=== PATIENT | female | born 1980 | race Caucasian/White ===

== ENCOUNTER → 2020-07-31 09:08 | Outpatient (BNVA) | payer OTHER, SELFPAY | PROVIDERS: PCP Internal Medicine; Visit Provider Internal Medicine Gastroenterology | DX: Z76.89 Persons encountering health services in other specified circumstances (principal) ==

== ENCOUNTER 2020-08-06 09:50 | Outpatient (REF) | payer OTHER, SELFPAY ==
[2020-08-06 11:23] LABS: MANUAL DIFF FLAG NO
[2020-08-06 11:43] LABS: Basophils Absolute Auto 0.1 X10*3/uL (0.0-0.2); Basophils Percent Auto 0.7 % (0-2); Eosinophils Absolute Auto 0.2 X10*3/uL (0.0-0.4); Eosinophils Percent Auto 1.6 % (0-4); Hematocrit 42.6 % (37-47); Hemoglobin 13.8 g/dl (12.0-16.0); Imm Gran Abs Auto 0.11 X10*3/uL (0.00-0.03); Lymphocytes Absolute Auto 2.9 X10*3/uL (1.2-4.9); Lymphocytes Percent Auto 26.7 % (20-40); Mean Corpuscular HGB Conc 32.4 g/dl (31.0-35.0); Mean Corpuscular Hemoglobin 30.1 pg (27.0-33.0); Mean Corpuscular Volume 92.8 fL (80-98); Mean Platelet Volume 10.5 fL (9.4-12.3); Monocytes Absolute Auto 0.7 X10*3/uL (0.1-1.2); Monocytes Percent Auto 6.3 % (2-11); Neutrophils Percent Auto 63.7 % (45-73); Platelet Count 272 X10*3/uL (160-400); Red Blood Count 4.59 X10*6/uL (4.20-5.50); Red Cell Distribution Width 13.3 % (11.0-16.0)
[2020-08-06 12:18] LABS: Alanine Aminotransferase 10 U/L (0-31); Albumin Level 4.3 g/dL (3.5-5.0); Alkaline Phosphatase 102 U/L (39-117); Aspartate Amino Transferase 14 U/L (5-31); Bilirubin Direct < 0.2 mg/dL (0.0-0.5); Bilirubin Total 0.3 mg/dL (0.0-1.0); Gamma Glutamyl Transpeptidase 24 U/L (7-33); Total Protein 7.7 g/dL (6.5-8.0)
[2020-08-07 13:37] LABS: Anti Nuclear Antibody Screen NEGATIVE (NEGATIVE)
[2020-08-09 11:52] LABS: Myeloperoxidase Antibody <1.0 AI; Proteinase 3 PR3 Antibodies <1.0 AI
[2020-08-11 14:53] LABS: Mitochondrial Antibodies NEGATIVE (NEGATIVE)
[2020-08-14 12:33] LABS: Smooth Muscle Antibody <20 U (<20)
== END 2020-08-06 09:51 | disposition home or self-care (01) ==
LOC: HO.LAB 09:50
PROVIDERS: PCP Internal Medicine; Visit Provider Internal Medicine Gastroenterology
DX: R74.8 Abnormal levels of other serum enzymes (principal)
CPT/HCPCS: 36415; 80076; 82977; 85025; 86021; 86038; 86039; 86255; 86256; 90471; 90746

== ENCOUNTER → 2020-09-10 09:22 | Outpatient (BNVA) | payer OTHER, SELFPAY | PROVIDERS: PCP Internal Medicine; Visit Provider Obstetrics & Gynecology ==

== ENCOUNTER 2020-09-10 13:15 | Outpatient (REF) | payer OTHER, SELFPAY ==
[2020-09-11 11:22] LABS: BV Int Neg Control Negative (Negative); BV Int Pos Control Positive (Positive)
[2020-09-11 11:58] LABS: C. trachomatis RNA TMA NOT DETECTED (NOT DETECTED); N. gonorrhoeae RNA TMA NOT DETECTED (NOT DETECTED)
[2020-09-18 06:07] LABS: HPV 16 RNA NOT DETECTED (NOT DETECTED); HPV mRNA E6/E7 rflx Detected (Not Detected)
== END 2020-09-10 13:16 | disposition home or self-care (01) ==
LOC: HO.LNP 13:15
PROVIDERS: Visit Provider Obstetrics & Gynecology
DX: Z12.4 Encounter for screening for malignant neoplasm of cervix (principal); N76.0 Acute vaginitis; B96.89 Other specified bacterial agents as the cause of diseases classified elsewhere; R31.29 Other microscopic hematuria
CPT/HCPCS: 87086; 87088; 87186; 87480; 87491; 87510; 87591; 87624; 87625; 87660; 88141; 88142

== ENCOUNTER 2020-10-07 07:44 | Day surgery (SDC) | payer OTHER, SELFPAY ==
[2020-10-01 09:46] VITALS: BMI 32.0
--- NOTE | 2020-10-06 11:48 | P.CONAN_ITS ---
Documented by User: Sandra Rhona 10/06/20 11:50 HPI - Anesthesia Eval Consult details Narrative: 40yo F for Upper Endoscopy and Colonoscopy methadone daily - h/o substance abuse PMFSH Active Problems Active Problems: All Active Problems (Updated 10/01/20 @ 09:45 by Ana Alonso) Bipolar disorder (Acute) Hepatitis C infection (Acute) Family history of colon cancer (Acute) Elevated alkaline phosphatase level (Acute) Well woman exam (Acute) Bacterial vaginosis (Acute) Microscopic hematuria (Acute) Past Medical History Medical History ADHD (attention deficit hyperactivity disorder) Anxiety and depression History of abnormal cervical Pap smear History of myocardial infarction History of substance abuse LGSIL (low grade squamous intraepithelial dysplasia) Termination of Family History Family History Father Arthritis HTN (hypertension) Dyslipidemia Mother Fibromyalgia Breast cancer Arthritis HTN (hypertension) Dyslipidemia Sister Breast cancer, Onset Age: 21 Cervical cancer, Onset Age: 21 Sister Colon cancer Maternal Uncle Stomach cancer Paternal Uncle Cancer Surgical History Surgical History History of section Social History Social History (Updated 10/01/20 @ 09:42 by Ana Alonso) Alcohol intake: never Smoking Status: Current every day smoker Tobacco Type: Cigarette Cigarettes Per Day: 10 Years Smoked: 15 Smoked in Last 30 Days: Yes Patient Given Instructions on How to Stop Smoking: Yes Date Education Initiated: 10/01/20 Use of substances other than those prescribed or required for medical reasons: Yes Substance Use Type: Marijuana Advance Directives: No Advance Directives Information Provided: No Advance Directives on File: No Meds Allergies Allergy/AdvReac Type Severity Reaction Status Date / Time bees Allergy Severe anphylaxis, Verified 10/07/20 09:07 anaphylaxis aspirin [ASPIRIN] Allergy Unknown UNKNOWN, Verified 10/07/20 09:07 advised not to take Home Medications Medication Instructions Recorded Confirmed Last Taken Type clonidine HCl 0.1 mg tablet 0.1 mg PO DAILY 05/06/20 10/01/20 10/07/20 06:30 History aripiprazole 20 mg tablet 20 mg PO DAILY 07/31/20 10/01/20 10/07/20 06:30 History methadone 10 mg/mL oral concentrate 98 mg PO DAILY 07/31/20 10/01/20 10/07/20 06:30 History etonogestrel 68 mg subdermal See Rx Instructions .ROUTE .COMPLEX 09/10/20 10/01/20 Unknown History implant Exam Exam Date and Time: October 06, 2020 1148 Height,Weight and Vital Signs: Height 5 ft 2 in Weight 79.379 kg Assessment and Plan Assessment Anesthesia Assessment: Chart Reviewed Documented by User: Ofelia Villareal 10/07/20 09:48 [facility] Past Medical History Medical History ADHD (attention deficit hyperactivity disorder) Anxiety and depression History of abnormal cervical Pap smear History of myocardial infarction History of substance abuse LGSIL (low grade squamous intraepithelial dysplasia) Termination of Family History Family History Father Arthritis HTN (hypertension) Dyslipidemia Mother Fibromyalgia Breast cancer Arthritis HTN (hypertension) Dyslipidemia Sister Breast cancer, Onset Age: 21 Cervical cancer, Onset Age: 21 Sister Colon cancer Maternal Uncle Stomach cancer Paternal Uncle Cancer Surgical History Surgical History History of section Social History Social History (Updated 10/01/20 @ 09:42 by Ana Alonso) Alcohol intake: never Smoking Status: Current every day smoker Tobacco Type: Cigarette Cigarettes Per Day: 10 Years Smoked: 15 Smoked in Last 30 Days: Yes Patient Given Instructions on How to Stop Smoking: Yes Date Education Initiated: 10/01/20 Use of substances other than those prescribed or required for medical reasons: Yes Substance Use Type: Marijuana Advance Directives: No Advance Directives Information Provided: No Advance Directives on File: No Meds Allergies Allergy/AdvReac Type Severity Reaction Status Date / Time bees Allergy Severe anphylaxis, Verified 10/07/20 09:07 anaphylaxis aspirin [ASPIRIN] Allergy Unknown UNKNOWN, Verified 10/07/20 09:07 advised not to take Home Medications Medication Instructions Recorded Confirmed Last Taken Type clonidine HCl 0.1 mg tablet 0.1 mg PO DAILY 05/06/20 10/01/20 10/07/20 06:30 History aripiprazole 20 mg tablet 20 mg PO DAILY 07/31/20 10/01/20 10/07/20 06:30 History methadone 10 mg/mL oral concentrate 98 mg PO DAILY 07/31/20 10/01/20 10/07/20 06:30 History etonogestrel 68 mg subdermal See Rx Instructions .ROUTE .COMPLEX 09/10/20 10/01/20 Unknown History implant Exam Airway Mallampati Class: I TM Dist: >3cm Neck ROM: Full Denture: Upper Heart: RRR Lungs: CTA BL Assessment and Plan Assessment Anesthesia Assessment: Anesthesia Plan Discussed and Chart Reviewed Final Anesthetic Review NPO: Yes (Sip water with meds) ASA Class: II Final Preanesthetic Review: No Changes in Pt Med Stat and Consent Obtained/Reviewed Patient Risk: Intermediate Procedure Risk: Intermediate Anesthetic Plan Anesthetic Plan: MAC: Disposition: Standard PACU
[2020-10-07 09:01] VITALS: BP 107/57; PULSE 67; RESP 18; TEMP 36.6; O2SAT 97
[2020-10-07 09:04] LABS: UPreg QC Valid YES; Urine Pregnancy NEGATIVE (NEGATIVE)
[2020-10-07] MEDS: Lactated Ringers 1,000 ML 100 ML IVCONT (09:47)
--- NOTE | 2020-10-07 09:49 | P.OP_ITS ---
Operative Note Operative Note Date of Service: 10/07/20 Narrative: Pre-op diagnosis: Colon cancer screening, postprandial diarrhea and bloating Post-op diagnosis: other (Colon polyp, diverticulosis, hemorrhoids) Procedure: COLONOSCOPY TILL CECUM WITH BIOPSIES AND SNARE POLYPECTOMY Consent: Indications for the procedure and potential complications of bleeding, perforation, reaction to medications and missed diagnosis were discussed with the patient and informed consent was obtained. Instrument: Olympus PCF H 190 L variable stiffness pediatric colonoscope Monitoring: Vital signs and clinical assessment, intermittent blood pressure monitoring, continuous EKG monitoring, Pulse oximetry and Carbon Dioxide monitoring were done throughout the procedure. Colon withdrawl time was 28 minutes. Procedure: The patient was placed in the left lateral decubitis position and pre-procedure medications were administered. After a digital rectal examination of the ano-rectum, the video colonoscope was inserted into the rectum and advanced through the colon to the cecum. The colonoscope was slowly withdrawn in a retrograde panoramic fashion and the colon mucosa was carefully examined including a retroflexed view of the rectum. Findings and interventions are described below. Procedure Difficulty: Without difficulty Findings: Terminal Ileum: Not evaluated Cecum: Normal Ascending Colon: Normal Transverse Colon: Normal Descending Colon: Moderate diverticulosis Sigmoid Colon: A 10 mm sessile polyp removed with a cold snare and moderate diverticulosis Rectum: Normal Ano-rectum: Small internal hemorrhoids Colon preparation: Good after some irrigation Impression and Post Procedure Diagnosis: Colonoscopy Findings: One 10 mm polyp removed Moderate diverticulosis seen in the left colon Small hemorrhoids on retroflexed exam. Plan: Await pathology results Patient has an appointment on 10/21/20 in the GI Clinic with Kristi Reece FNP- [facility]. Repeat Colonoscopy interval based on path results - in 3 years if polyps are adenomatous and 10 years if polyps are hyperplastic. Above findings were reviewed with the patient and colon polyps and diverticulosis handouts were given in the discharge area Surgeon: Teja Cantor MD Anesthesia: MAC (Dr Moran) Estimated blood loss (mL): 0 Pathology: other (A. Random colon bx, B. SC polyp x 1) Condition: stable Disposition: PACU
--- NOTE | 2020-10-07 09:49 | P.BOP_ITS ---
Brief Operative Note Date of Service: 10/07/20 Pre-op diagnosis: Family history of gastric cancer Post-op diagnosis: other (Hiatal hernia, gastritis) Procedure: FLEXIBLE TRANSORAL UPPER GASTROINTESTINAL ENDOSCOPY WITH BIOPSIES Consent: Indications for the procedure and potential complications of bleeding, perforation, reaction to medications and missed diagnosis were discussed with the patient and informed consent was obtained. Instrument: Olympus GIF H 190 mid size upper endoscope Monitoring: Vital signs and clinical assessment, continuous EKG monitoring, Pulse oximetry, Carbon Dioxide monitoring and blood pressure monitoring were done throughout the procedure. Procedure: The patient was placed in the left lateral decubitis position and pre-procedure medications were administered and a bite block was placed. The endoscope was inserted into the mouth and advanced under direct vision to the third part of duodenum. A careful inspection was made as the upper endoscope was withdrawn including a retroflexed examination of the proximal stomach; Findings and interventions are described below. Findings: Larynx: Normal Esophagus: GE junction at 33 cms, small hiatal hernia 33 to 35 cms. No esophagitis or Avelar. Stomach: Mild gastric erythema. Biopsies were obtained. Grade 2 flap valve on retroflexed examination of the cardia. Duodenum: Normal bulb and descending duodenum Intervention: Biopsies as noted above Impression and Post Procedure Diagnosis: Endoscopy Findings: ESOPHAGUS: Small hiatal hernia STOMACH: Gastritis Plan: Await pathology results Patient has an appointment on 10/16/20 in the GI Clinic with Teja Cantor M.D.- . Above findings were reviewed with the patient and Hiatal Hernia and Gastritis handouts were given in the discharge area Surgeon: Teja Cantor MD Anesthesia: MAC (Dr Moran) Estimated blood loss (mL): 0 Pathology: other (A. Gastric antrum) Condition: stable Disposition: PACU
--- NOTE | 2020-10-07 09:49 | P.HPSUR_ITS ---
Pre-Procedural Eval Section A The patient is an INPATIENT: No The History & Physical has been completed within 30 days and I have reviewed it.: No Section B Chief Complaint: hep c,family hx of colon ca Details of Present Illness: abdominal pain, family history of colon and stomach cancer Sister of colon cancer at age 52. Maternal uncles had stomach (? age 67 yrs) and colon cancer (53 yrs) Mom had colon polyps and breast. Relevant Family History (Specify if Yes): Yes Present Medications: see Short Stay Collaborative assessment Medical History: Significant History (History of abnormal cervical Pap smear History of myocardial infarction History of substance abuse) History of Previous Operations: Relevant previous surgery/procedure and date(s) (Status post ) Allergies: Allergies Allergy/AdvReac Type Severity Reaction Status Date / Time bees Allergy Severe anphylaxis, Verified 10/07/20 09:07 anaphylaxis aspirin [ASPIRIN] Allergy Unknown UNKNOWN, Verified 10/07/20 09:07 advised not to take Review of Systems Sugical H&P ROS: Negative: Constitution, Cardiovascular, Respiratory and Gastrointestinal Exam Surgical H&P Exam: Normal: Heart, Normal: Lungs, Normal: Extremities and Normal: Abdomen Plan Diagnosis/Plan: Change (Plan to proceed with EGD today. Colonoscopy will be re- scheduled since pt was not able to get her prep.) I have reviewed the history and physical and performed a pertinent physical examination on my patient. No changes have occurred unless specified.
[2020-10-07 10:24] VITALS: BP 104/58; PULSE 70; RESP 16; TEMP 37; O2SAT 94
[2020-10-07 10:39] VITALS: BP 102/61; PULSE 64; RESP 17; TEMP 37; O2SAT 99
== END 2020-10-07 11:15 | disposition home or self-care (01) ==
PROVIDERS: Nurse Practitioner; PCP Internal Medicine; Visit Provider Internal Medicine Gastroenterology
PROC: (CPT 45385; principal; 2020-10-07 09:50)
DX: Z12.11 Encounter for screening for malignant neoplasm of colon (principal); Z80.0 Family history of malignant neoplasm of digestive organs; K63.5 Polyp of colon; K57.30 Diverticulosis of large intestine without perforation or abscess without bleeding; K64.8 Other hemorrhoids; K21.9 Gastro-esophageal reflux disease without esophagitis; K29.50 Unspecified chronic gastritis without bleeding; K44.9 Diaphragmatic hernia without obstruction or gangrene; B18.2 Chronic viral hepatitis C; F90.9 Attention-deficit hyperactivity disorder, unspecified type; F31.9 Bipolar disorder, unspecified; F11.20 Opioid dependence, uncomplicated; F12.90 Cannabis use, unspecified, uncomplicated; F17.210 Nicotine dependence, cigarettes, uncomplicated; Z79.899 Other long term (current) drug therapy; Z88.8 Allergy status to other drugs, medicaments and biological substances
CPT/HCPCS: 45385; 45380; 43239; 81025; 88305; 88342

== ENCOUNTER 2020-11-26 15:28 | Outpatient (REF) | payer OTHER, SELFPAY ==
[2020-11-27 09:52] LABS: BV Int Neg Control Negative (Negative); BV Int Pos Control Positive (Positive)
== END 2020-11-26 15:29 | disposition home or self-care (01) ==
LOC: HO.LAB 15:28
PROVIDERS: Visit Provider Nurse Practitioner Family
DX: N39.0 Urinary tract infection, site not specified (principal); N89.8 Other specified noninflammatory disorders of vagina
CPT/HCPCS: 87086; 87088; 87186; 87480; 87510; 87660

== ENCOUNTER → 2020-12-04 10:38 | Outpatient (BNVA) | payer OTHER, SELFPAY | PROVIDERS: PCP Internal Medicine; Visit Provider Internal Medicine Gastroenterology | DX: B19.20 Unspecified viral hepatitis C without hepatic coma (principal); R74.8 Abnormal levels of other serum enzymes; K59.09 Other constipation; Z80.0 Family history of malignant neoplasm of digestive organs | CPT/HCPCS: 90471; 90746; 99212 ==

== ENCOUNTER 2021-02-06 12:28 | Outpatient (REF) | payer OTHER, SELFPAY ==
--- NOTE | ~2021-02-06 | XR_ITS ---
EXAMINATION: XR KNEE, RIGHT CLINICAL INFORMATION: Pain COMPARISON: None TECHNIQUE: Four views of the right knee. FINDINGS: Bone alignment is normal. No fracture or dislocation is seen. The joint spaces are normal. Bones may be osteopenic. There is no joint effusion. XR/XR knee RT 4V IMPRESSION: Question osteopenia otherwise unremarkable exam.
== END 2021-02-06 12:29 | disposition home or self-care (01) ==
LOC: HO.HMGCX 12:28
PROVIDERS: PCP Internal Medicine; Visit Provider Hospitalist
DX: M25.561 Pain in right knee (principal)
CPT/HCPCS: 73564

== ENCOUNTER 2021-02-16 08:32 | Outpatient (REF) | payer OTHER, SELFPAY | END 2021-02-16 08:33 | disposition home or self-care (01) | LOC: HO.LAB 08:32 | PROVIDERS: PCP Internal Medicine; Visit Provider Obstetrics & Gynecology | DX: Z01.419 Encounter for gynecological examination (general) (routine) without abnormal findings (principal); R87.810 Cervical high risk human papillomavirus (HPV) DNA test positive; F17.210 Nicotine dependence, cigarettes, uncomplicated | CPT/HCPCS: 57456; 88305 ==

== ENCOUNTER → 2021-03-02 11:31 | Outpatient (BNVA) | payer OTHER, SELFPAY | PROVIDERS: PCP Internal Medicine; Visit Provider Obstetrics & Gynecology ==

== ENCOUNTER 2021-03-16 08:45 | Outpatient (REF) | payer OTHER, SELFPAY | END 2021-03-16 08:46 | disposition home or self-care (01) | LOC: HO.HOSX 08:45 | PROVIDERS: Visit Provider Physician Assistant | DX: Z13.89 Encounter for screening for other disorder (principal) ==

== ENCOUNTER 2021-03-25 01:50 | Emergency (ER) | payer OTHER, SELFPAY ==
[2021-03-25 01:59] VITALS: BP 129/86; PULSE 114; RESP 20; TEMP 36.7; O2SAT 96; BMI 27.9
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
[2021-03-25 02:28] VITALS: BP 129/86; PULSE 114; RESP 18; TEMP 36.7; O2SAT 96
[2021-03-25] MEDS: LORazepam 1 MG TABLET PO ×2 (02:33→05:09)
[2021-03-25 03:08] LABS: Basophils Percent Auto 0.3 % (0-2); Hematocrit 43.1 % (37-47); Hemoglobin 14.4 g/dl (12.0-16.0); Imm Gran Abs Auto 0.08 X10*3/uL (0.00-0.03); Imm Gran Pct Auto 0.6 % (0.0-0.4); Lymphocytes Absolute Auto 0.7 X10*3/uL (1.2-4.9); MANUAL DIFF FLAG SCAN; Mean Corpuscular HGB Conc 33.4 g/dl (31.0-35.0); Mean Corpuscular Hemoglobin 30.4 pg (27.0-33.0); Mean Corpuscular Volume 91.1 fL (80-98); Mean Platelet Volume 10.9 fL (9.4-12.3); Monocytes Absolute Auto 0.2 X10*3/uL (0.1-1.2); Monocytes Percent Auto 1.3 % (2-11); Neutrophils Absolute Auto 13.1 X10*3/uL (2.0-8.3); Neutrophils Percent Auto 92.8 % (45-73); Platelet Count 281 X10*3/uL (160-400); Red Blood Count 4.73 X10*6/uL (4.20-5.50); Red Cell Distribution Width 12.6 % (11.0-16.0); SCAN SMEAR FLAG 1; White Blood Count 14.1 X10*3/uL (4.8-10.8)
[2021-03-25 03:10] LABS: SLIDE REVIEW VERIFIED
[2021-03-25 03:25] LABS: COVID-19 Test Negative (Negative)
[2021-03-25 03:38] LABS: Ethanol < 10 mg/dL
[2021-03-25 03:46] LABS: Alanine Aminotransferase 13 U/L (0-31); Albumin Level 4.7 g/dL (3.5-5.0); Alkaline Phosphatase 109 U/L (39-117); Anion Gap 21 (12-20); Aspartate Amino Transferase 21 U/L (5-31); Bilirubin Direct 0.3 mg/dL (0.0-0.5); Bilirubin Total 0.4 mg/dL (0.0-1.0); Blood Urea Nitrogen 17 mg/dL (9-16); Calcium 9.9 mg/dL (8.4-10.2); Carbon Dioxide 20 mmol/L (22-29); Chloride 103 mmol/L (96-108); Creatinine Clr Calc Pharmacy 67.5; Estimated Glomerular Filt Rate 54; Glucose Random 108 mg/dL (60-115); Magnesium 2.1 mg/dL (1.6-2.6); Potassium 4.6 mmol/L (3.3-5.1); Sodium 139 mmol/L (135-145); Total Protein 8.2 g/dL (6.5-8.0)
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
[2021-03-25 04:59] VITALS: BP 124/96; PULSE 85; RESP 18; TEMP 36.6; O2SAT 94
[2021-03-25] MEDS: OLANZapine 5 MG TABLET PO (05:09)
--- NOTE | 2021-03-25 05:13 | PC.NURSE ---
Patient loud disruptive, upset and fixated over how PD treated her, psychotic, requesting IM medication to calm her racing thought, provider notified/ ordered verbal order of Ativan 1 mg PO and Olanzapine 5 mg PO, order entered/read back/approved, administered as ordered, patient compliant, pending effect, VSS, will continue to monitor.
--- NOTE | 2021-03-25 07:55 | PC.NURSE ---
pt sleeping. she awaits Prieto dumont
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
--- NOTE | 2021-03-25 09:53 | PC.NURSE ---
pt has been seen by addiction nurse and states she is not suicidal, has no thoughts of self harm. She is ready for discharge, is ambulatory to bathroom to change and has arranged for a ride.
== END 2021-03-25 10:08 | disposition home or self-care (01) ==
PROVIDERS: Physician Assistant; Emergency Provider Student in an Organized Health Care Education/Training Program; PCP Internal Medicine
DX: F41.1 Generalized anxiety disorder (principal); F43.0 Acute stress reaction; R45.851 Suicidal ideations; F31.9 Bipolar disorder, unspecified; F12.90 Cannabis use, unspecified, uncomplicated; F17.210 Nicotine dependence, cigarettes, uncomplicated; Z71.6 Tobacco abuse counseling; Z79.899 Other long term (current) drug therapy; Z20.822 Contact with and (suspected) exposure to COVID-19
CPT/HCPCS: 36415; 80048; 80076; 82077; 83735; 85025; 87635; 99284; 99285

== ENCOUNTER 2021-03-27 20:07 | Emergency (ER) | payer OTHER, SELFPAY ==
[2021-03-27 20:12] VITALS: BP 137/81; PULSE 74; RESP 16; TEMP 36.1; O2SAT 99; BMI 25.6
--- NOTE | 2021-03-27 23:43 | ED.EXTPRO ---
HPI - Extremity Problem General Chief complaint: Extremity Injury, Upper Stated complaint: Shoulder pain Time Seen by Provider: 03/27/21 23:43 Source: patient Mode of arrival: ambulatory Limitations: no limitations History of Present Illness HPI Narrative: Patient was arrested and states that she was injured 2 days ago. she is here to be evaluated. She was grabbed and put in handcuffs behind her back She felt like her shoulder was injured on the left. MD Complaint: extremity pain Onset (ago): day(s) Pain Consistency: constant Location: left and upper extremity Quality: burning Associated symptoms: denies other symptoms Related Data Home Medications Medication Instructions Recorded Confirmed methadone 10 mg/mL oral 98 mg PO DAILY 07/31/20 02/24/21 concentrate (Methadose) clonidine HCl 0.1 mg tablet 1 tab PO TID 03/25/21 03/25/21 Previous Rx's Medication Instructions Recorded naproxen 500 mg tablet (Naprosyn) 500 mg PO BID #20 tab 03/28/21 Allergies Allergy/AdvReac Type Severity Reaction Status Date / Time bees Allergy Severe anphylaxis, Verified 03/02/21 11:42 anaphylaxis aspirin [ASPIRIN] Allergy Unknown UNKNOWN, Verified 03/02/21 11:42 advised not to take Review of Systems Constitutional: Constitutional: Reports no additional constitutional complaints Eyes: Eyes: Reports no additional eye complaints ENT: Denies dizziness Cardiovascular: Cardiovascular: Reports no additional cardiovascular complaints Respiratory: Respiratory: Reports as per HPI Gastrointestinal: Gastrointestinal: Reports no additional gastrointestinal complaints Genitourinary: Genitourinary: Reports no additional female genitourinary complaints Musculoskeletal: Musculoskeletal: Reports no additional musculoskeletal complaints Integumentary/Breasts: Skin/Breast: Denies rash Neurologic: Reports system reviewed and no additional complaints, except as documented, Denies dizziness and Denies Sensory deficit (Neuro) Psychiatric: Psychiatric: Denies anxiety PMFSH Past Medical History Medical History ADHD (attention deficit hyperactivity disorder) Anxiety and depression History of abnormal cervical Pap smear History of myocardial infarction History of substance abuse LGSIL (low grade squamous intraepithelial dysplasia) Termination of Surgical History History of section Hx of esophagogastroduodenoscopy Family History Family History Father Arthritis HTN (hypertension) Dyslipidemia Mother Fibromyalgia Breast cancer Arthritis HTN (hypertension) Dyslipidemia Sister Breast cancer, Onset Age: 21 Cervical cancer, Onset Age: 21 Sister Colon cancer Maternal Uncle Stomach cancer Paternal Uncle Cancer Social History Social History Alcohol intake: never Cigarettes Per Day: 10 Years Smoked: 15 Substance Use Type: Marijuana Advance Directives: No Advance Directives Information Provided: Yes Patient : No Physical Exam Vital Signs: Vital Signs: Last Vital Signs Temp 97.0 F 03/27/21 20:12 Pulse 74 03/27/21 20:12 Resp 16 03/27/21 20:12 BP 137/81 03/27/21 20:12 Pulse Ox 99 03/27/21 20:12 Body Mass Index 25.6 Const: General: healthy appearing Nutritional Appearance: average body habitus Orientation/consciousness: oriented to person and patient oriented x3 Limitations: no limitations HENMT: Head: Yes normal to inspection Ears: external ears normal General nose exam: Normal external nose present Mouth: Normal oral and palatal mucosa present and oropharynx normal Throat: Yes posterior oropharynx normal Eyes: General: appearance normal, both eyes and all related structures Neck: Other: supple Neck: Yes normal visual inspection Chest: Chest palpation & inspection: normal inspection of the chest Resp: Auscultation: clear to auscultation bilaterally Cardio: Jugular venous distension: no JVD Rate: regular rate Rhythm: regular rhythm Heart sounds: S1 normal heart sound present and S2 normal heart sound present GI: Inspection: Yes normal to inspection Palpation (GI): Soft to palpation, nontender and No hepatosplenomegaly present Auscultation: normal bowel sounds : General: Yes no CVA tenderness Back/Spine/Pelvis: Back: no CVA tenderness Skin: Other: Bruising to both arms Neuro: General: oriented to person and patient oriented x3 Cranial nerves: Yes CN's II-XII intact bilaterally Motor exam (neuro): 5/5 motor strength present throughout Sensory Exam: No Sensory deficit (Neuro) Extrem: Other: left shoulder tender, FROM, no effusion, shoulder appears aligned Psych: Appearance: grossly normal Course Reevaluation(s) Reevaluation #1: patient very dramatic and anxious, will place in sling for pain relief although I discussed frozen shoulder Time: 01:32 Discharge Plan Discharge Clinical Impression: Left shoulder strain Qualifiers: Encounter type: initial encounter Qualified Code(s): S46.912A - Strain of unspecified muscle, fascia and tendon at shoulder and upper arm level, left arm, initial encounter Patient Disposition: Home, Self-Care Instructions: How to Use a Sling (ED) Prescriptions: New naproxen [Naprosyn] 500 mg tablet 500 mg PO BID Qty: 20 RF: 0 No Action clonidine HCl 0.1 mg tablet 1 tab PO TID RF: 0 methadone [Methadose] 10 mg/mL concentrate 98 mg PO DAILY RF: 0
--- NOTE | 2021-03-28 00:51 | PC.NURSE ---
DR HAD COME IN TO SEE PT AND SHE WAS IN RESTROOM FOR 30 MIN SO HE HAD AND WHEN SHE GOT OUT SHE WAS ANGRY HE WAS NOT WAITING FIR HER. PT WAS TOLD HE HAD TO SEE OTHER PT AND HE WOULD BE BACK TO SEE HER WHEN HE COULD.
[2021-03-28] MEDS: Ketorolac Tromethamine 60 MG/2 ML VIAL IM (01:14)
--- NOTE | 2021-03-28 01:37 | PC.NURSE ---
PT DECLINED TO WAIT FOR HER IMAGING SHE TOLD NURSE SHE HAD APT WITH ORTHOPEDIC PROVIDER ON TUESDAY AND SHE WOULD ADDRESS. HER SHOULDER CONCERN THEN WITH THEM. PT GIVEN SLING BECAUSE SHE INSISTED SHE NEEDED ONE FOR COMFORT. PT WARN TO DO HER EXERCISES OR SHE COULD GET A FROZEN SHOULDER.
== END 2021-03-28 01:44 | disposition home or self-care (01) ==
PROVIDERS: Emergency Provider Emergency Medicine; PCP Internal Medicine
DX: S46.912A Strain of unspecified muscle, fascia and tendon at shoulder and upper arm level, left arm, initial encounter (principal); S40.022A Contusion of left upper arm, initial encounter; S40.021A Contusion of right upper arm, initial encounter; Y35.813A Legal intervention involving manhandling, suspect injured, initial encounter; Y93.89 Activity, other specified; Y92.9 Unspecified place or not applicable; Y99.9 Unspecified external cause status
CPT/HCPCS: 96372; 99284; J1885

== ENCOUNTER 2021-04-06 07:29 | Outpatient (REF) | payer OTHER, SELFPAY | END 2021-04-06 07:30 | disposition home or self-care (01) | LOC: HO.HOSX 07:29 | PROVIDERS: Visit Provider Physician Assistant | DX: Z13.89 Encounter for screening for other disorder (principal) ==

== ENCOUNTER 2021-10-13 10:24 | Outpatient (REF) | payer OTHER, SELFPAY ==
[2021-10-14 09:33] LABS: CT PCR NOT DETECTED (Not Detect.); NG PCR NOT DETECTED (Not Detect.)
[2021-10-14 10:05] LABS: BV Int Neg Control Negative (Negative); BV Int Pos Control Positive (Positive)
[2021-10-16 16:41] LABS: HPV mRNA E6/E7 rflx Not Detected (Not Detected)
== END 2021-10-13 10:25 | disposition home or self-care (01) ==
LOC: HO.LAB 10:24
PROVIDERS: PCP Internal Medicine; Visit Provider Obstetrics & Gynecology
DX: Z01.411 Encounter for gynecological examination (general) (routine) with abnormal findings (principal); Z11.51 Encounter for screening for human papillomavirus (HPV); N76.0 Acute vaginitis; B96.89 Other specified bacterial agents as the cause of diseases classified elsewhere
CPT/HCPCS: 87480; 87491; 87510; 87591; 87624; 87660; 88142

== ENCOUNTER 2021-11-12 16:00 | Outpatient (REF) | payer OTHER, SELFPAY ==
--- NOTE | ~2021-11-12 | XR_ITS ---
EXAMINATION: XR CHEST CLINICAL INFORMATION: Cough COMPARISON: None TECHNIQUE: 2 views of the chest were obtained. FINDINGS: No focal consolidation. No pneumothorax. Trachea is midline. Cardiomediastinal silhouette is not enlarged. No large pleural effusion. Osseous structures are intact. Soft tissues are unremarkable. XR/XR chest 2V IMPRESSION: No acute cardiopulmonary process.
--- NOTE | ~2021-11-12 | XR_ITS ---
EXAMINATION: XR hand wrist LT CLINICAL INFORMATION: Reason for Exam M25.532 - Pain in left wrist COMPARISON: None. TECHNIQUE: PA, oblique and lateral views XR/XR hand wrist LT FINDINGS/IMPRESSION: No acute fracture or dislocation. Healed fracture deformity of the distal radial metaphysis with residual dorsal angulation approximately 30 degrees. Chronic nonunited ulnar styloid avulsion fracture, with 2 mm radial displacement of the ulnar styloid avulsion fracture fragment. Small marginal osteophytes of the first carpometacarpal joint.
== END 2021-11-12 16:01 | disposition home or self-care (01) ==
LOC: HO.HMGCX 16:00
PROVIDERS: Visit Provider Internal Medicine
DX: M25.532 Pain in left wrist (principal); R05.8 Other specified cough
CPT/HCPCS: 71046; 73110; 73130

== ENCOUNTER 2022-10-07 11:27 | Outpatient (AMB) | payer OTHER, SELFPAY ==
[2022-10-07 12:05] VITALS: BP 112/70; PULSE 63; O2SAT 98; BMI 26.7
--- NOTE | 2022-10-07 12:05 | A.OFFPC_ITS ---
Vital Signs 10/07/22 12:05 Height 5 ft Weight 137 lb BMI 26.7 BP 112/70 Blood Pressure Location Rt brachial Position Sitting Pulse 63 Pulse Source Pulse Oximeter Pulse Oximetry (%) 98 Oxygen Delivery Method Room Air Intake Visit Reasons: [facility] Intake Note: Pt is here today to f/u from [facility] (suicide watch in [place]) Allergies bees Allergy (Severe, Verified 08/24/23 17:05) anphylaxis, anaphylaxis aspirin [ASPIRIN] Allergy (Unknown, Verified 08/24/23 17:05) UNKNOWN, advised not to take Medication List - Last Reconciled 08/24/23 by Ting Mims MD clonidine HCl 1 tab PO TID diclofenac sodium 1% 2 grams topical QID PRN diphenhydramine HCl (Banophen) 50 mg PO BID epinephrine 0.3 mg IM ONCE PRN etonogestrel (Nexplanon) subdermal methadone (Methadose) 60 mg PO DAILY metronidazole 500 mg PO Q12H 7 days Tobacco use date assessed: 10/07/22 HPI [facility] HPI Details 43-year-old lady here today needing kylah tment for gonococcal infection. Patient states that she had a Pap and STD screening done last month and it came back positive for gonorrhea, negative for chlamydia. She states that she has been having is yellowish vaginal discharge but no abdominal /pelvic pain reported. Complains of intermittent episodes of pain and stiffness in left knee joint, no history of trauma. [facility] Medical History Arthralgia of both knees Vaginal discharge Productive cough Wrist pain, left ADHD (attention deficit hyperactivity disorder) Anxiety and depression Termination of LGSIL (low grade squamous intraepithelial dysplasia) History of myocardial infarction History of substance abuse History of abnormal cervical Pap smear Surgical History Hx of esophagogastroduodenoscopy History of section Family History Father Arthritis HTN (hypertension) Dyslipidemia Mental health disorder Mother Fibromyalgia Breast cancer Arthritis HTN (hypertension) Dyslipidemia Sister Breast cancer, Onset Age: 21 Cervical cancer, Onset Age: 21 Sister Colon cancer Maternal Uncle Stomach cancer Paternal Uncle Cancer Brother Substance use disorder Social History Housing: Apartment Alcohol intake: never Patient Tobacco Use Status: Current everyday Tobacco user Cigarettes Per Day: 10 Years Smoked: 15 e-Cigarette/Vaping Use: Currently Using Substance Use Type: Marijuana Current occupational status: unemployed Cognitive needs: No Hearing needs: No Vision needs: No Female Reproductive History Menstrual Age of Menarche: 13 Questionnaire AUDIT C Alcohol Use Questionnaire (AUDIT-C) 1. How often do you have a drink containing alcohol?: Never Total Score: 0 Review of Systems Const Denies chills and Denies fever(s) ENT Reports no additional complaints Card Denies chest pain, Denies rapid heart rate and Denies lightheadedness Resp Reports no additional complaints GI Reports no additional complaints Reports as per HPI and Denies dysuria Musc Reports no additional complaints and Reports as per HPI Physical exam (Primary Care) Vital Signs: Last Vital Signs Pulse 63 10/07/22 12:05 BP 112/70 10/07/22 12:05 Pulse Ox 98 10/07/22 12:05 Oxygen Delivery Method Room Air 10/07/22 12:05 BMI result Body Mass Index 26.7 Tobacco/Smoking Status: Tobacco use Status Tobacco use date assessed 10/07/22 10/07/22 12:06 Patient Tobacco Use Status Current everyday Tobacco 10/07/22 12:06 e-Cigarette/Vaping Use Currently Using 10/07/22 12:06 Const Other: Alert oriented x3, no acute distress noted Orientation/consciousness: patient oriented x3 [facility] General nose exam: Normal external nose present and No nasal discharge present Face and sinus: Yes face symmetric Mouth: Normal oral and palatal mucosa present, oropharynx normal and moist mucous membranes Neck Neck: Yes full ROM, Yes no lymphadenopathy, Yes no meningeal signs and Yes supple Resp Auscultation: clear to auscultation bilaterally Cardio Other: S1-S2 present regular rate and rhythm External Female Exam: normal external appearance and normal appearance of the urethra Speculum Exam - Vagina: abnormal vaginal discharge malodorous and yellow Speculum Exam - Cervix: normal appearance of the cervix and normal palpation Bimanual exam- vagina & uterus: normal palpation Skin General skin exam: no rashes or lesions noted Neuro General: patient oriented x3, gait normal, tone normal, moves all extremities, Normal light touch and pain sensation, no meningeal signs and no focal motor deficits Extrem Other: No gross bone deformity or joint swelling noted normal range of motion of knee joints bilateral, nontender to palpation Office Meds ceftriaxone 500 mg solution for injection Performing Provider: Ting Mims MD Performing Location: [facility] Administered by: Lety Hidalgo RN on 10/07/22 12:48 Dose Route Admin Location Dispensed Lot Number Expiration Date [employer] 500 mg IM left deltoid 500 mg [id number] 11/06/22 2687-4150-69 [facility] Comments: Diluted with lidocaine 1%, Lot [id number], exp [id number] Assessment and Plan Assessment & Plan (1) Acute gonorrhea of lower genitourinary tract: Code(s): A54.00 - Gonococcal infection of lower genitourinary tract, unspecified Plan: Empirically treated with on does ceftriaxone not given IM, GC chlamydia scree izabella done today as well as bacterial vaginosis panel . patient advised not to have any sexual intercourse until results are available (2) Vaginal discharge: Code(s): N89.8 - Other specified noninflammatory disorders of vagina (3) Arthralgia of both knees: Code(s): M25.561 - Pain in right knee; M25.562 - Pain in left knee Plan: Prescription sent for diclofenac sodium 1% gel, to massaged to affected knee to 4 times a day as directed Orders: Orders AMB Ceftriaxone Injection 10/07/22 N89.8 - Other specified noninflammatory disorders of vagina, A54.00 - Gonococcal infection of lower genitourinary tract, unspecified CT NG by PCR 10/07/22 N89.8 - Other specified noninflammatory disorders of vagina, A54.00 - Gonococcal infection of lower genitourinary tract, unspecified Bacterial Vaginosis Panel 10/07/22 N89.8 - Other specified noninflammatory disorders of vagina, A54.00 - Gonococcal infection of lower genitourinary tract, unspecified Medications: Changed From diclofenac sodium 1% 2 grams topical QID PRN 100 grams 0RF left wrist pain M25.561 - Pain in right knee, M25.562 - Pain in left knee To diclofenac sodium 1% 2 grams topical QID PRN 100 grams 0RF knee pain M25.561 - Pain in right knee, M25.562 - Pain in left knee Coding Level of Care Code Est Pt Level 3 (44625) Diagnoses Acute gonorrhea of lower genitourinary tract A54.00 Vaginal discharge N89.8 Arthralgia of both knees M25.561; M25.562
== END 2022-10-07 12:52 | disposition home or self-care (01) ==
LOC: HO.HMGC 11:27
PROVIDERS: PCP Internal Medicine; Visit Provider Internal Medicine
DX: A54.00 Gonococcal infection of lower genitourinary tract, unspecified (principal); N89.8 Other specified noninflammatory disorders of vagina; M25.561 Pain in right knee; M25.562 Pain in left knee
CPT/HCPCS: 99213

== ENCOUNTER 2022-10-07 12:38 | Outpatient (REF) | payer OTHER, SELFPAY ==
[2022-10-07 15:57] LABS: CT PCR NOT DETECTED (Not Detect.); NG PCR NOT DETECTED (Not Detect.)
[2022-10-08 10:03] LABS: BV Int Neg Control Negative (Negative); BV Int Pos Control Positive (Positive)
== END 2022-10-07 12:39 | disposition home or self-care (01) ==
LOC: HO.LAB 12:38
PROVIDERS: Visit Provider Internal Medicine
DX: N89.8 Other specified noninflammatory disorders of vagina (principal); A54.00 Gonococcal infection of lower genitourinary tract, unspecified
CPT/HCPCS: 0353U; 87480; 87510; 87660

== ENCOUNTER 2023-08-24 13:22 | Emergency (ER) | payer OTHER, SELFPAY ==
--- NOTE | ~2023-08-24 | XR_ITS ---
EXAMINATION: XR HIP, RIGHT CLINICAL INFORMATION: Fell down on the right hip, right hip injury and pain COMPARISON: None available. TECHNIQUE: Frontal x-ray of the pelvis, Frontal and Frog leg lateral x-rays of right hip. FINDINGS: BONES: Bony structures are intact. There is no focal bone destruction or periosteal reaction seen. JOINTS: Alignment of hip joint is normal. SOFT TISSUE: Soft tissue is normal. No radiopaque foreign body or abnormal air collection is seen. XR/XR hip RT w PEL1V IMPRESSION: 1. Normal pelvis x-ray. No fracture or dislocation is seen. 2. Normal x-ray of right hip. No fracture or dislocation or signs of avascular necrosis are seen.
[2023-08-24 13:27] VITALS: BP 112/49; PULSE 78; RESP 20; TEMP 37.1; O2SAT 98; BMI 23.3
--- NOTE | 2023-08-24 13:29 | ED.GENADULT ---
HPI - General Adult General Chief complaint: Fall Stated complaint: R Hip Injury S/P Fall 08/23/23 Time Seen by Provider: 08/24/23 14:41 Source: patient Mode of arrival: ambulatory Limitations: no limitations History of Present Illness HPI narrative: Patient is a 43 year old assigned female at with a history of hepatitis C and bipolar disorder presenting to the emergency department today with right hip pain after a fall. Patient states that she slipped and fell on a side walk yesterday hitting her right hip. Patient denies any head strike or loss of consciousness. Patient denies any dizziness, lightheadedness, abdominal pain, nausea, vomiting, fever, chills, blurry vision, double vision, loss of vision, chest pain, difficulty breathing, shortness of breath, back pain, night sweats, pain with urination, increased urinary frequency, increased urinary urgency, blood in her urine or stool, syncope or a near syncopal episode, bowel incontinence, bladder incontinence, bowel retention, bladder retention, or any other complaints at this time. Onset (ago): day(s) (1) Location: right (hip pain) Radiation: non-radiation Severity: mild Severity scale (1-10): 3 Quality: aching and dull Pain Consistency: constant Relieving factors: none Exacerbating factors: none Associated symptoms: denies other symptoms Treatments prior to arrival: none Related Data Home Medications Medication Instructions Recorded Confirmed clonidine HCl 0.1 mg tablet 1 tab PO TID 03/25/21 08/24/23 etonogestrel 68 mg subdermal subdermal 10/13/21 08/24/23 implant (Nexplanon) methadone 10 mg/mL oral 60 mg PO DAILY 11/12/21 08/24/23 concentrate (Methadose) diphenhydramine HCl 25 mg tablet 50 mg PO BID 04/27/22 08/24/23 (Banophen) epinephrine 0.3 mg/0.3 mL 0.3 mg IM ONCE PRN 04/27/22 08/24/23 injection, auto-injector Previous Rx's Medication Instructions Recorded diclofenac sodium 1 % topical gel 2 g topical QID PRN knee pain #100 10/07/22 grams metronidazole 500 mg tablet 500 mg PO Q12H 7 days #14 tabs 10/10/22 Allergies Allergy/AdvReac Type Severity Reaction Status Date / Time bees Allergy Severe anphylaxis, Verified 08/24/23 17:05 anaphylaxis aspirin [ASPIRIN] Allergy Unknown UNKNOWN, Verified 08/24/23 17:05 advised not to take Review of Systems Constitutional: Constitutional: Reports no additional constitutional complaints, Denies chills, Denies fever(s) and Denies night sweats Eyes: Eyes: Reports no additional eye complaints, Denies blurry vision, Denies change in vision, Denies diplopia, Denies eye discharge, Denies loss of vision and Denies eye pain ENT: Denies dizziness Cardiovascular: Cardiovascular: Reports no additional cardiovascular complaints, Denies chest pain, Denies lightheadedness, Denies Loss of Consciousness and Denies dyspnea Respiratory: Respiratory: Reports no additional respiratory complaints and Denies dyspnea Gastrointestinal: Gastrointestinal: Reports no additional gastrointestinal complaints, Denies abdominal pain, Denies melena, Denies hematochezia, Denies change in bowel habits and Denies change in stool character Genitourinary: Genitourinary: Denies hematuria, Denies urinary frequency, Denies dysuria, Denies urinary incontinence, Denies urinary hesitancy and Denies urinary urgency Musculoskeletal: Musculoskeletal: Reports no additional musculoskeletal complaints, Denies numbness and Denies tingling Comments: right hip pain Neurologic: Denies dizziness, Denies loss of vision, Denies numbness and Denies tingling Psychiatric: Psychiatric: Reports no additional psychiatric complaints Endocrine: Endocrine: Reports no additional endocrine complaints Hematologic/Lymphatic: Hematologic/Lymphatic: Reports no additional hematologic/lymphatic complaints Allergic/Immunologic: Allergic/Immunologic: Reports no additional allergic/immunologic complaints PMFSH Past Medical History Attestation statement: The following information was validated with the patient. Source: old records reviewed and nursing notes reviewed Onset Date is defined in the Problem List Problems that require an onset date and time if occurred within 24 hrs of arrival to the ED Aortic Dissection and Rupture; Neurologic impairment; Cardiopulmonary Arrest; Endotracheal Intubation; Insertion or Replacement of Mechanical Circulatory Assist Device Medical History Acute hip pain Vaginal discharge Productive cough Wrist pain, left Bacterial vaginosis Right knee pain Vaginal discharge UTI (urinary tract infection) Microscopic hematuria Bacterial vaginosis Well woman exam Elevated alkaline phosphatase level Family history of colon cancer Arthralgia of both knees ADHD (attention deficit hyperactivity disorder) Anxiety and depression Termination of LGSIL (low grade squamous intraepithelial dysplasia) History of myocardial infarction History of substance abuse History of abnormal cervical Pap smear Surgical History Hx of esophagogastroduodenoscopy History of section Family History Family History Father Arthritis HTN (hypertension) Dyslipidemia Mental health disorder Mother Fibromyalgia Breast cancer Arthritis HTN (hypertension) Dyslipidemia Sister Breast cancer, Onset Age: 21 Cervical cancer, Onset Age: 21 Sister Colon cancer Maternal Uncle Stomach cancer Paternal Uncle Cancer Brother Substance use disorder Social History Social History Housing: Apartment Alcohol intake: never Patient Tobacco Use Status: Current everyday Tobacco user Cigarettes Per Day: 10 Years Smoked: 15 e-Cigarette/Vaping Use: Currently Using Substance Use Type: Marijuana Advance Directives: No Advance Directives Information Provided: No Current occupational status: unemployed Cognitive needs: No Hearing needs: No Vision needs: No Physical Exam ED Vital Signs: Vital Signs - 24 hr 08/24/23 13:27 08/24/23 15:18 Temperature 98.8 F Pulse Rate 78 82 Respiratory Rate 20 16 Blood Pressure 112/49 L 118/56 L Pulse Oximetry 98 98 Oxygen Delivery Method Room Air Room Air BMI result Body Mass Index 23.3 Const General: cooperative, no acute distress, alert and awake Nutritional Appearance: well nourished Orientation/consciousness: patient oriented x3 Limitations: no limitations HENMT Head: Yes normal to inspection and Yes atraumatic Ears: hearing grossly normal bilaterally and external ears normal General nose exam: Normal external nose present, no nasal discharge noted and no epistaxis Face and sinus: Yes normal facial exam, No abrasion and No laceration Mouth: Normal oral and palatal mucosa present, no drooling and no muffled voice Eyes General: appearance normal, both eyes and all related structures Periorbital: periorbital findings normal Eyelids: Yes eyelids normal Conjunctivae: conjunctivae normal Pupils: Equal, round and reactive pupils present EOM: EOMs intact bilaterally Neck Neck: Yes normal visual inspection, Yes full ROM and Yes no lymphadenopathy Chest Chest palpation & inspection: normal inspection of the chest Resp Effort & Inspection: normal respiratory effort and able to speak in complete sentences GI Inspection: Yes normal to inspection General: Yes no CVA tenderness Back/Spine/Pelvis Back: no CVA tenderness Cervical Spine: normal cervical lordosis Thoracic/Lumbar Spine: thoracic and lumbar spine normal to inspection and Thoracic/lumbar spine scar(s) Pelvis: no pain with anterior-posterior compression Neuro General: patient oriented x3 and moves all extremities Cranial nerves: Yes Equal, round and reactive pupils present Cognition (Neuro): normal cognition Motor exam (neuro): 5/5 motor strength present throughout Sensory Exam: Normal double simultaneous stimulation for sensation Coordination: [id number] test normal Extrem General: Yes normal to inspection, Yes full ROM and Yes capillary refill normal Psych Appearance: grossly normal Mental Status: mental status grossly normal Affect: normal affect Attitude: cooperative Thought process: Normal thought process present Thought content: Normal thought content present Insight: Good insight present (Psych) Course Course Course Narrative: RME:?43 yo female here with right hip pain s/p trip and fall on [id number] yesterday. States she tried to catch herself however fell onto right hip instead. Had to be helped up. Has been ambulating however this elicits pain to right hip. No head strike or LOC. Not on AC. ambulating with antalgic gait. nv intact distally. strength 5/5 to extension. full rom intact plan for xrs Full HPI, ROS and PE to be performed by the primary ED provider. Medical Decision Making Medical Decision Making [facility] Narrative: Patient is a 43 year old assigned female at with a history of hepatitis C and bipolar disorder presenting to the emergency department today with right hip pain. Patient's physical exam was unremarkable. Patient's hip and pelvis x-ray showed no acute process. I explained my physical exam findings as well as all test results to the patient. I answered all questions asked by the patient. I stressed the importance of the patient taking her medication as prescribed. I stressed the importance of the patient following up with her primary care provider. I stressed the importance of the patient returning to the emergency department immediately if her symptoms were to worsen or if she were to develop any dizziness, shortness of breath, difficulty breathing, chest pain, blurry vision, loss of vision, nausea, vomiting, abdominal pain, fever, chills, back pain, or any other complaints. Patient verbalized agreement and understanding with this treatment plan and discharge. Differential Diagnosis Differential Diagnoses: The differential diagnosis associated with the presentation includes Hip pain Pelvis pranav Fall Admission/Observation Consideration of admission/observation: Escalation of care including admission/observation considered Patient would have been admitted to the hospital had her work up had any findings where hospital admission was appropriate and her clinical presentation warranted hospital admission. Independent Interpretation I performed an independent interpretation of an: Plain X-Ray Interpretation: My interpretation is in agreement with the radiologist's impression of these imaging studies. EXAMINATION: XR HIP, RIGHT CLINICAL INFORMATION: Fell down on the right hip, right hip injury and pain COMPARISON: None available. TECHNIQUE: Frontal x-ray of the pelvis, Frontal and Frog leg lateral x-rays of right hip. FINDINGS: BONES: Bony structures are intact. There is no focal bone destruction or periosteal reaction seen. JOINTS: Alignment of hip joint is normal. SOFT TISSUE: Soft tissue is normal. No radiopaque foreign body or abnormal air collection is seen. XR/XR hip RT w PEL1V IMPRESSION: 1. Normal pelvis x-ray. No fracture or dislocation is seen. 2. Normal x-ray of right hip. No fracture or dislocation or signs of avascular necrosis are seen. Dictated By: Alicja Yo Signed By: Electronically signed by Alicja Yo 08/24/23 2303 Radiology Impression Discussion of test interpretation with radiology: I have reviewed the radiologist's reading. Discharge Plan Discharge Clinical Impression: Acute hip pain Patient Disposition: Home, Self-Care Instructions: Hip Pain (ED) Additional Instructions: Follow up with your primary care provider. Return to the emergency department immediately if your symptoms worsen or if you develop any dizziness, shortness of breath, difficulty breathing, chest pain, blurry vision, loss of vision, nausea, vomiting, abdominal pain, fever, chills, back pain, or any other complaints. Prescriptions: No Action metronidazole 500 mg tablet 500 mg PO Q12H 7 Days Qty: 14 0RF clonidine HCl 0.1 mg tablet 1 tab PO TID methadone [Methadose] 10 mg/mL concentrate 60 mg PO DAILY diphenhydramine HCl [Banophen] 25 mg tablet 50 mg PO BID epinephrine 0.3 mg/0.3 mL auto-injector 0.3 mg IM ONCE PRN diclofenac sodium 1 % gel 2 g topical QID PRN (Reason: knee pain) Qty: 100 0RF Nexplanon 68 mg implant subdermal Referrals: Ting Mims MD [Primary Care Provider] - Interventions: ED Discharge Assessment Last Done: 08/24/23 15:18 Discharge Date/Time: 08/24/23 15:20 Print Language: [place]
[2023-08-24 15:18] VITALS: BP 118/56; PULSE 82; RESP 16; O2SAT 98
== END 2023-08-24 15:20 | disposition home or self-care (01) ==
PROVIDERS: Emergency Provider Emergency Medicine; PCP Internal Medicine
DX: M25.551 Pain in right hip (principal)
CPT/HCPCS: 73502; 99283

== ENCOUNTER 2023-08-30 08:04 | Emergency (ER) | payer OTHER, SELFPAY ==
[2023-08-30 08:19] VITALS: BP 145/86; PULSE 57; RESP 16; TEMP 36.3; O2SAT 100; BMI 17.4
--- NOTE | 2023-08-30 08:30 | ED.GENADULT ---
HPI - General Adult General Chief complaint: ETOH/Substance Use Stated complaint: Withdrawals Time Seen by Provider: 08/30/23 08:29 Source: patient Mode of arrival: wheelchair Limitations: no limitations History of Present Illness HPI narrative: Patient is a 43 year old assigned female at with a history of heroin use presenting to the emergency department today with heroin withdrawal. Patient states that she was here in the hospital visiting her mother when she started to go into withdrawal. Patient states that she wants to detox. Patient denies any dizziness, lightheadedness, abdominal pain, nausea, vomiting, fever, chills, blurry vision, double vision, loss of vision, chest pain, difficulty breathing, shortness of breath, back pain, night sweats, pain with urination, increased urinary frequency, increased urinary urgency, blood in her urine or stool, syncope or a near syncopal episode, recent trauma or falls, bowel incontinence, bladder incontinence, bowel retention, bladder retention, or any other complaints at this time. Relieving factors: none Exacerbating factors: none Associated symptoms: denies other symptoms Treatments prior to arrival: none Related Data Home Medications Medication Instructions Recorded Confirmed clonidine HCl 0.1 mg tablet 1 tab PO TID 03/25/21 08/24/23 etonogestrel 68 mg subdermal subdermal 10/13/21 08/24/23 implant (Nexplanon) methadone 10 mg/mL oral 60 mg PO DAILY 11/12/21 08/24/23 concentrate (Methadose) diphenhydramine HCl 25 mg tablet 50 mg PO BID 04/27/22 08/24/23 (Banophen) epinephrine 0.3 mg/0.3 mL 0.3 mg IM ONCE PRN 04/27/22 08/24/23 injection, auto-injector Previous Rx's Medication Instructions Recorded diclofenac sodium 1 % topical gel 2 g topical QID PRN knee pain #100 10/07/22 grams metronidazole 500 mg tablet 500 mg PO Q12H 7 days #14 tabs 10/10/22 Allergies Allergy/AdvReac Type Severity Reaction Status Date / Time bees Allergy Severe anphylaxis, Verified 08/24/23 17:05 anaphylaxis aspirin [ASPIRIN] Allergy Unknown UNKNOWN, Verified 08/24/23 17:05 advised not to take Review of Systems Constitutional: Constitutional: Reports no additional constitutional complaints, Denies chills, Denies fever(s) and Denies night sweats Eyes: Eyes: Reports no additional eye complaints, Denies blurry vision, Denies change in vision, Denies diplopia, Denies eye discharge, Denies loss of vision and Denies eye pain ENT: Denies dizziness Cardiovascular: Cardiovascular: Reports no additional cardiovascular complaints, Denies chest pain, Denies lightheadedness, Denies Loss of Consciousness and Denies dyspnea Respiratory: Respiratory: Reports no additional respiratory complaints and Denies dyspnea Gastrointestinal: Gastrointestinal: Reports no additional gastrointestinal complaints, Denies abdominal pain, Denies melena, Denies hematochezia, Denies change in bowel habits and Denies change in stool character Genitourinary: Genitourinary: Denies hematuria, Denies urinary frequency, Denies dysuria, Denies urinary incontinence, Denies urinary hesitancy and Denies urinary urgency Musculoskeletal: Musculoskeletal: Reports no additional musculoskeletal complaints, Denies numbness and Denies tingling Neurologic: Denies dizziness, Denies loss of vision, Denies numbness and Denies tingling Psychiatric: Psychiatric: Reports no additional psychiatric complaints Endocrine: Endocrine: Reports no additional endocrine complaints Hematologic/Lymphatic: Hematologic/Lymphatic: Reports no additional hematologic/lymphatic complaints Allergic/Immunologic: Allergic/Immunologic: Reports no additional allergic/immunologic complaints [facility] Past Medical History Attestation statement: The following information was validated with the patient. Source: old records reviewed and nursing notes reviewed Medical History Acute hip pain Vaginal discharge Productive cough Wrist pain, left Bacterial vaginosis Right knee pain Vaginal discharge UTI (urinary tract infection) Microscopic hematuria Bacterial vaginosis Well woman exam Elevated alkaline phosphatase level Family history of colon cancer Arthralgia of both knees ADHD (attention deficit hyperactivity disorder) Anxiety and depression Termination of LGSIL (low grade squamous intraepithelial dysplasia) History of myocardial infarction History of substance abuse History of abnormal cervical Pap smear Surgical History Hx of esophagogastroduodenoscopy History of section Family History Family History Father Arthritis HTN (hypertension) Dyslipidemia Mental health disorder Mother Fibromyalgia Breast cancer Arthritis HTN (hypertension) Dyslipidemia Sister Breast cancer, Onset Age: 21 Cervical cancer, Onset Age: 21 Sister Colon cancer Maternal Uncle Stomach cancer Paternal Uncle Cancer Brother Substance use disorder Social History Social History Housing: Apartment Alcohol intake: never Patient Tobacco Use Status: Current everyday Tobacco user Cigarettes Per Day: 10 Years Smoked: 15 e-Cigarette/Vaping Use: Currently Using Substance Use Type: Heroin Advance Directives: No Advance Directives Information Provided: No Current occupational status: unemployed Cognitive needs: No Hearing needs: No Vision needs: No Physical Exam ED Vital Signs: Vital Signs - 24 hr 08/30/23 08:19 Temperature 97.4 F Pulse Rate 57 Respiratory Rate 16 Blood Pressure 145/86 H Pulse Oximetry 100 Oxygen Delivery Method Room Air BMI result Body Mass Index 17.4 Const General: cooperative, no acute distress, alert and awake Nutritional Appearance: well nourished Orientation/consciousness: patient oriented x3 Limitations: no limitations HENMT Head: Yes normal to inspection and Yes atraumatic Ears: hearing grossly normal bilaterally and external ears normal General nose exam: Normal external nose present, no nasal discharge noted and no epistaxis Face and sinus: Yes normal facial exam, No abrasion and No laceration Mouth: Normal oral and palatal mucosa present, no drooling and no muffled voice Eyes General: appearance normal, both eyes and all related structures Periorbital: periorbital findings normal Eyelids: Yes eyelids normal Conjunctivae: conjunctivae normal Pupils: Equal, round and reactive pupils present EOM: EOMs intact bilaterally Neck Neck: Yes normal visual inspection, Yes full ROM and Yes no lymphadenopathy Chest Chest palpation & inspection: normal inspection of the chest Resp Effort & Inspection: normal respiratory effort and able to speak in complete sentences GI Inspection: Yes normal to inspection Neuro General: patient oriented x3 and moves all extremities Cranial nerves: Yes Equal, round and reactive pupils present Cognition (Neuro): normal cognition Motor exam (neuro): 5/5 motor strength present throughout Sensory Exam: Normal double simultaneous stimulation for sensation Coordination: [id number] test normal Extrem General: Yes normal to inspection, Yes full ROM and Yes capillary refill normal Psych Appearance: grossly normal Mental Status: mental status grossly normal Affect: normal affect Attitude: cooperative Thought process: Normal thought process present Thought content: Normal thought content present Insight: Good insight present (Psych) Medications Administered Discontinued Medications Generic Name Dose Route Start Last Admin Trade Name Freq PRN Reason Stop Dose Admin Lorazepam 2 mg 08/30/23 08:32 08/30/23 08:56 Lorazepam 1 Mg Tablet PO 08/30/23 08:33 2 mg ONCE ONE Administration Methadone HCl 40 mg 08/30/23 10:29 08/30/23 11:33 Methadone Hcl 20 Mg/2 Ml Oral.Conc PO 08/30/23 10:30 40 mg ONCE ONE Administration Naloxone HCl 8 mg 08/30/23 10:31 08/30/23 11:33 Naloxone Hcl Nasal Take Home 4 Mg [place] NOSTRILALT 08/30/23 10:32 8 mg ONCE ONE Administration Medical Decision Making Medical Decision Making MDM Narrative: Patient is a 43 year old assigned female at with a history of heroin use presenting to the emergency department today with opiate withdrawal. Patient's physical exam was unremarkable. Recovery team met with the patient who recommended giving 1 dose of 40mg methadone and discharging the patient. I explained my physical exam findings to the patient. I answered all questions asked by the patient. I stressed the importance of the patient taking her medication as prescribed. I stressed the importance of the patient following up with her primary care provider and the [facility]. I stressed the importance of the patient returning to the emergency department immediately if her symptoms were to worsen or if she were to develop any dizziness, shortness of breath, difficulty breathing, chest pain, blurry vision, loss of vision, nausea, vomiting, abdominal pain, fever, chills, back pain, or any other complaints. Patient verbalized agreement and understanding with this treatment plan and discharge. 1218 --> Patient was initially agreeable with discharge however, when it came to get dressed and leave, the patient stated that she is suicidal. Labs and urine ordered. CARE team consult placed. Patient's disposition will be determined after CARE team evaluation. Differential Diagnosis Differential Diagnoses: The differential diagnosis associated with the presentation includes Opiate withdrawal Opiate detox Admission/Observation Consideration of admission/observation: Escalation of care including admission/observation considered Patient's disposition will be determined after CARE team evaluation. Consult Healthcare Provider Management of the patient was discussed with: Cotton Farmer (spoke with the recovery team as noted in the MDM Rationale portion of this note.) Critical Care Time Critical Care Time Critical Care Time: Yes Total Critical Care Time: 35 Attestation: I spent 35 minutes of Critical Care Time with this patient. This does not include time spent on separately reported billable procedures. Discharge Plan Discharge Clinical Impression: Heroin withdrawal Patient Disposition: Still a Patient Instructions: Opioid Use Disorder (ED) Prescriptions: No Action metronidazole 500 mg tablet 500 mg PO Q12H 7 Days Qty: 14 0RF clonidine HCl 0.1 mg tablet 1 tab PO TID methadone [Methadose] 10 mg/mL concentrate 60 mg PO DAILY diphenhydramine HCl [Banophen] 25 mg tablet 50 mg PO BID epinephrine 0.3 mg/0.3 mL auto-injector 0.3 mg IM ONCE PRN diclofenac sodium 1 % gel 2 g topical QID PRN (Reason: knee pain) Qty: 100 0RF Nexplanon 68 mg implant subdermal Referrals: [facility] [Provider Group] Ting Mims MD [Primary Care Provider] - Print Language: [place]
--- NOTE | 2023-08-30 08:32 | ECG_ITS ---
Test Reason : opiate use, withdrawal Blood Pressure : / mmHG Vent. Rate : 051 BPM Atrial Rate : 051 BPM P-R Int : 122 ms QRS Dur : 082 ms QT Int : 450 ms P-R-T Axes : 065 069 062 degrees QTc Int : 414 ms Sinus bradycardia Minimal voltage criteria for LVH, may be normal variant ( Sokolow-Bingham ) Borderline ECG No previous ECGs available Referred By: Niecy Pritchard Electronically Signed By:Richy Olivarez
[2023-08-30] MEDS: LORazepam 1 MG TABLET 2 MG PO (08:56)
[2023-08-30] MEDS: Naloxone HCl Nasal TAKE HOME 4 MG SPRAY 8 MG NOSTRILALT (11:33)
[2023-08-30] MEDS: methADONE HCl 20 MG/2 ML ORAL.CONC 40 MG PO (11:33)
--- NOTE | 2023-08-30 11:43 | PC.NURSE ---
pt comes from upstairs where she was visiting her mom who is admitted. pt started to detox, was found in a bed unclothed, shaky. pt brought down to ED via wheelchair, EKG obtained, and pt provided with jase and trevor per EFRAÍN Olvera. pt incontinent of stool, required full bed change. insisted in staff cleaning her up with no help when pt is fully capable of using a commode/bedpan and moving around the stretcher independently. pt medicated per oct, seen by recovery team. pt with some confusion of plan of care. call cruz within reach. plan of care ongoing.
--- NOTE | 2023-08-30 13:45 | PC.NURSE ---
pt endorsing SI, 1:1 sitter at bedside for pt safety. labs drawn. awaiting urine sample. diet order in. pt aware of plan of care. rr even/unlabored. pt in and out of sleep. plan of care ongoing.
[2023-08-30 13:47] LABS: MANUAL DIFF FLAG NO
[2023-08-30 13:50] LABS: Basophils Percent Auto 0.2 % (0-2); Hematocrit 36.5 % (37.0-47.0); Hemoglobin 12.6 g/dl (12.0-16.0); Imm Gran Abs Auto 0.05 X10*3/uL (0.00-0.03); Imm Gran Pct Auto 0.5 % (0.0-0.4); Lymphocytes Absolute Auto 0.7 X10*3/uL (1.2-4.9); Mean Corpuscular HGB Conc 34.5 g/dl (31.0-35.0); Mean Corpuscular Hemoglobin 30.2 pg (27.0-33.0); Mean Corpuscular Volume 87.5 fL (80.0-98.0); Mean Platelet Volume 10.3 fL (9.4-12.3); Monocytes Absolute Auto 0.2 X10*3/uL (0.1-1.2); Monocytes Percent Auto 1.7 % (2-11); Neutrophils Absolute Auto 8.2 x10*3/uL (2.0-8.3); Neutrophils Percent Auto 89.6 % (45-73); Platelet Count 223 X10*3/uL (160-400); Red Blood Count 4.17 X10*6/uL (4.20-5.50); Red Cell Distribution Width 12.3 % (11.0-16.0); White Blood Count 9.2 X10*3/uL (4.8-10.8)
[2023-08-30 14:10] LABS: Acetaminophen LAB < 3 mcg/mL (<30); Alanine Aminotransferase 80 U/L (0-31); Albumin Level 3.6 g/dL (3.5-5.0); Alkaline Phosphatase 84 U/L (39-117); Anion Gap 13 (12-20); Aspartate Amino Transferase 52 U/L (5-31); Bilirubin Total 0.4 mg/dL (0.0-1.0); Blood Urea Nitrogen 15 mg/dL (9-16); Calcium 8.9 mg/dL (8.4-10.2); Carbon Dioxide 25 mmol/L (22-29); Chloride 105 mmol/L (96-108); Creatinine Clr Calc Pharmacy 66.8; Estimated Glomerular Filt Rate > 60; Ethanol < 10 mg/dL; Glucose Random 156 mg/dL (60-115); Potassium 3.5 mmol/L (3.3-5.1); Salicylate < 5.0 mg/dL (15-30); Sodium 139 mmol/L (135-145); Total Protein 7.4 g/dL (6.5-8.0)
[2023-08-30 14:11] LABS: COVID-19 Test Negative (Negative); IDNOW Serial# 152EDE1D
[2023-08-30 14:43] VITALS: BP 134/73; PULSE 98; RESP 16; TEMP 36.8; O2SAT 98
--- NOTE | 2023-08-30 14:55 | MHC.RECOVRN ---
Met with pt this morning at approx 1100 after pt presented to the ED with withdrawal symptoms. Pt laying in bed, awake, alert, engages with t/w, appears uncomfortable and restless. Pt reports using heroin/fentanyl, 1 bundle daily, IV, last use yesterday afternoon as well as cocaine, INH, not a lot. Pt reports this morning at 0500 taking Suboxone, 8 mg. Pt subsequently began experiencing precipitated withdrawal. Currently, pt reporting upset stomach, hot/cold, diaphoresis, restlessness. Pt interested in initiating methadone. Pt has been on methadone in the past, last in July at [facility]. Pt would like to return to that OTP. Pt denies other questions or concerns for t/w. Discussed with provider, plan for pt to receive 40 mg methadone and present to OTP tomorrow.
--- NOTE | 2023-08-30 15:23 | PC.NURSE ---
assumed care of this pt at 1500. pt wheeled over by security via w/c. pt a+o x3, denies pain at this time. pt in room resting quietly.
[2023-08-30] MEDS: LORazepam 1 MG TABLET PO (18:52)
--- NOTE | 2023-08-30 19:47 | PC.NURSE ---
patient appears to remain at rest at present respirations are even and unlabored patient appears in no distress.
[2023-08-30 21:22] LABS: Appearance Urine Cloudy; Color Urine Yellow; Glucose Urine UA Negative (Negative); Leukocyte Esterase Urine Trace (Negative); Nitrite Urine Negative (Negative); PH 6.5 (5.0-9.0); Specific Gravity - Urine 1.025 (1.005-1.025); UMIC TRIGGER UA YES; UPreg QC Valid YES; Urine Blood Trace (Negative); Urine Ketones Trace mg/dL (Negative); Urine Pregnancy NEGATIVE (NEGATIVE); Urine Protein Trace mg/dL (Neg-Trace)
[2023-08-30 21:25] LABS: Bacteria Urine 4+ (None Seen); Hyaline Casts Urine 0-2 /LPF (0-2); Squamous Epithelial Cell Urine 0-2 /HPF (0-2)
[2023-08-30 21:26] LABS: Amphetamine Screen Urine Not Detected (Not Detect); Barbiturates, Urine Not Detected (Not Detect); Benzodiazepines Screen Urine Not Detected (Not Detect); Cannabinoid Screen Urine POSITIVE (Not Detect); Cocaine Screen Urine POSITIVE (Not Detect); Fentanyl, urine POSITIVE (Not Detect); Opiate Screen Urine POSITIVE (Not Detect); Phencyclidine Screen Urine Not Detected (Not Detect)
[2023-08-30 22:06] VITALS: BP 143/94; PULSE 84; RESP 18; TEMP 37.7; O2SAT 100
[2023-08-31 02:10] VITALS: BP 136/87; PULSE 83; RESP 15; TEMP 37.5; O2SAT 98
[2023-08-31] MEDS: cefuroxime axetiL 250 MG TABLET PO ×2 (02:36→10:32)
[2023-08-31] MEDS: Acetaminophen 325 MG TABLET 650 MG PO (04:00)
[2023-08-31] MEDS: cloNIDine HCL 0.1 MG TABLET PO (04:01)
[2023-08-31 08:32] VITALS: BP 127/85; PULSE 84; TEMP 37.1; O2SAT 100
--- NOTE | 2023-08-31 09:48 | MHC.RECOVRN ---
Met with pt in 1 after cleared by CARE Team. Pt laying in bed, awake, alert, engages in conversation. Discussed recovery options, pt continues to endorse desire for methadone continuation. Pt appears uncomfortable, reports anxiety, restlessness, upset stomach. Pt would like to discharge home and continue with methadone at [facility]. Discussed with provider, plan to administer 50 mg methadone and dc. Pt will be transported home. Referral sent to .
[2023-08-31] MEDS: methADONE HCl 20 MG/2 ML ORAL.CONC 50 MG PO (10:02)
--- NOTE | 2023-08-31 10:39 | PC.NURSE ---
Debo was in bed resting for most of the shift. She denies SI/HI/AVH but states she is in withdrawals from drugs . Debo reports the methadone yesterday was helpful and she was given 50mg PO today and given a LDL to take to the clinic. Suha called and Debo has been discharged home.
== END 2023-08-31 10:46 | disposition home or self-care (01) ==
PROVIDERS: Physician Assistant Medical; Emergency Provider Emergency Medicine Emergency Medical Services; PCP Internal Medicine
DX: F11.23 Opioid dependence with withdrawal (principal); R45.851 Suicidal ideations; Z11.52 Encounter for screening for COVID-19; F90.9 Attention-deficit hyperactivity disorder, unspecified type; F41.8 Other specified anxiety disorders; B19.20 Unspecified viral hepatitis C without hepatic coma; Z79.899 Other long term (current) drug therapy
CPT/HCPCS: 80053; 80143; 80179; 80307; 81001; 81025; 85025; 87635; 93005; 99285; S9485

== ENCOUNTER → 2023-08-30 08:32 | Outpatient (BNV) | payer OTHER, SELFPAY | PROVIDERS: Emergency Provider Emergency Medicine Emergency Medical Services; PCP Internal Medicine; Visit Provider Internal Medicine Cardiovascular Disease | DX: R00.1 Bradycardia, unspecified (principal) | CPT/HCPCS: 93010 ==

== ENCOUNTER 2024-10-08 13:47 | Outpatient (REF) | payer OTHER, SELFPAY ==
[2024-10-09 11:00] LABS: Bacterial Vaginosis PCR POSITIVE (Negative); Candida Group PCR NOT DETECTED (Not Detect); Candida glab krusei PCR NOT DETECTED (Not Detect); Trichomonas vaginalis PCR NOT DETECTED (Not Detect)
== END 2024-10-08 13:48 | disposition home or self-care (01) ==
LOC: HO.LAB 13:47
PROVIDERS: PCP Internal Medicine; Visit Provider Physician Assistant
DX: N30.00 Acute cystitis without hematuria (principal); N89.8 Other specified noninflammatory disorders of vagina
CPT/HCPCS: 81003; 81515; 87086; 87088; 87186; 99212

== ENCOUNTER 2024-10-08 13:47 | Outpatient (AMB) | payer OTHER, SELFPAY ==
--- NOTE | 2024-10-08 14:30 | MHC.OFFWIV ---
Intake Vital Signs 10/08/24 14:40 Weight 155 lb BP 124/80 Blood Pressure Location Rt brachial Position Sitting Pulse 71 Pulse Source Pulse Oximeter Pulse Oximetry (%) 98 Oxygen Delivery Method Room Air Intake Visit Reasons: EP ? UTI Intake Note: Patient here for bladder pressure and foul odor that has been present for about 1 month. Patient Tobacco Use Status: Current everyday Tobacco user Allergies bees Allergy (Severe, Verified 10/08/24 14:39) anphylaxis, anaphylaxis aspirin [ASPIRIN] Allergy (Unknown, Verified 10/08/24 14:39) UNKNOWN, advised not to take HPI HPI Comments History of Present Illness Details History of Present Illness - The patient is a 44-year-old female presenting with symptoms of a urinary tract infection and bacterial vaginosis. - The patient experiences frequent urinary tract infections with urinary odor and bladder discomfort upon urination. Burning is absent. - Personal hygiene difficulties during incarceration have led to recurrent bacterial vaginosis, marked by vaginal odor and a white, slightly chunky discharge. - Previous management involved vaginal gels; however, she is considering oral antibiotics. - Chronic constipation with infrequent bowel movements is also noted, linked to her Suboxone treatment. - Her history includes treatment for Hepatitis C contracted through substance use, seeking follow-up for this condition. - She carries a history of HPV and pending follow-up with her [employer]. Physical Exam General: Cooperative, healthy appearing, comfortable, no acute distress and well developed Orientation: Patient oriented x3 Limitations: No limitations Head: Normal to inspection Ears: Hearing grossly normal bilaterally Nose: Normal external nose present Face and sinus: Normal facial exam Eyes: Appearance normal, both eyes and all related structures Neck: Normal visual inspection and Yes full ROM Respiratory: Normal respiratory effort and able to speak in complete sentences. Clear to auscultation bilaterally Cardiovascular: Regular rate and rhythm. Normal S1 and S2 Skin: No rashes or lesions noted Neuro: Patient oriented x3 Extremities: Normal to inspection [facility] Medical History (Updated 10/08/24 @ 14:56 by Angi Devries PA-C) UTI (urinary tract infection) Acute hip pain Vaginal discharge Productive cough Wrist pain, left Bacterial vaginosis Right knee pain Vaginal discharge Microscopic hematuria Bacterial vaginosis Well woman exam Elevated alkaline phosphatase level Family history of colon cancer Arthralgia of both knees ADHD (attention deficit hyperactivity disorder) Anxiety and depression Termination of LGSIL (low grade squamous intraepithelial dysplasia) History of myocardial infarction History of substance abuse History of abnormal cervical Pap smear Surgical History Hx of esophagogastroduodenoscopy History of section Family History Father Arthritis HTN (hypertension) Dyslipidemia Mental health disorder Mother Fibromyalgia Breast cancer Arthritis HTN (hypertension) Dyslipidemia Sister Breast cancer, Onset Age: 21 Cervical cancer, Onset Age: 21 Sister Colon cancer Maternal Uncle Stomach cancer Paternal Uncle Cancer Brother Substance use disorder Social History Housing: Apartment Alcohol intake: never Patient Tobacco Use Status: Current everyday Tobacco user Cigarettes Per Day: 10 Years Smoked: 15 e-Cigarette/Vaping Use: Currently Using Substance Use Type: Heroin Current occupational status: unemployed Cognitive needs: No Hearing needs: No Vision needs: No Female Reproductive History Menstrual Age of Menarche: 13 Review of Systems Const All systems reviewed & are unremarkable except as noted in HPI and below Physical Exam Vital Signs: Last Vital Signs Pulse 71 10/08/24 14:40 BP 124/80 10/08/24 14:40 Pulse Ox 98 10/08/24 14:40 Oxygen Delivery Method Room Air 10/08/24 14:40 Results AMB Urinalysis, Automated UA Leukoctes 0 Mee/uL Last Edit by TOO Hooper on 10/08/24 14:53 UA Nitrite Negative Last Edit by TOO Hooper on 10/08/24 14:53 UA Urobilinogen 0.2 mg/dL Last Edit by TOO Hooper on 10/08/24 14:53 UA Protein 0 mg/dL Last Edit by TOO Hooper on 10/08/24 14:53 UA pH 6.0 Last Edit by TOO Hooper on 10/08/24 14:53 UA Blood 0 Luis Angel/uL Last Edit by TOO Hooper on 10/08/24 14:53 UA Specific [place] 1.025 Last Edit by TOO Hooper on 10/08/24 14:53 UA Ketone Positive Last Edit by TOO Hooper on 10/08/24 14:53 UA Bilirubin 0 mg/dL Last Edit by TOO Hooper on 10/08/24 14:53 UA Glucose 0 mg/dL Last Edit by TOO Hooper on 10/08/24 14:53 Results Reviewed Results Reviewed: Laboratory Last Values Urine pH (Auto) 6.0 10/08/24 14:52 Specific [place] (Auto) 1.025 10/08/24 14:52 Urine Protein (Auto) 0 mg/dL 10/08/24 14:52 Glucose (UA)(Auto) 0 mg/dL 10/08/24 14:52 Urine Ketones (Auto) Positive 10/08/24 14:52 Urine Blood (Auto) 0 Luis Angel/uL 10/08/24 14:52 Urine Nitrite (Auto) Negative 10/08/24 14:52 Urine Bilirubin (Auto) 0 mg/dL 10/08/24 14:52 Urine Urobilinogen (Auto) 0.2 mg/dL 10/08/24 14:52 Leukocyte Esterase (Auto) 0 Mee/uL 10/08/24 14:52 Assessment & Plan Assessment & Plan (1) UTI (urinary tract infection): Code(s): N39.0 - Urinary tract infection, site not specified Qualifiers: Urinary tract infection type: acute cystitis Hematuria presence: without hematuria Qualified Code(s): N30.00 - Acute cystitis without hematuria Plan: UA negative for infection, culture sent. We will treat patient based on her symptoms. I will prescribe Cefuroxime for the urinary tract infection, to be taken twice daily for five days. Follow-up appointments with Dr. Mims for Hepatitis C and constipation - sent message to [place] to book appt for pt. Patient was informed and verbally consented to the use of an ambient scribe for clinic note documentation during this visit. (2) Vaginal odor: Code(s): N89.8 - Other specified noninflammatory disorders of vagina Plan: A self-swab test is advised for bacterial vaginosis confirmation, with further treatment dependent on results, initially considering oral treatment due to historical ineffectiveness of gels. Orders: Orders Bacterial Vaginosis Panel Today N89.8 - Other specified noninflammatory disorders of vagina AMB Urinalysis Automated Today Z13.9 - Encounter for screening, unspecified Urine Culture Today N39.0 - Urinary tract infection, site not specified Medications: New cefuroxime axetil 500 mg PO Q12H 10 tabs 0RF Coding Level of Care Code Est Pt Level 4 (61854) Diagnoses Acute cystitis without hematuria N30.00 Urinary tract infection type: acute cystitis Hematuria presence: without hematuria Vaginal odor N89.8
[2024-10-08 14:40] VITALS: BP 124/80; PULSE 71; O2SAT 98
== END 2024-10-08 15:18 | disposition home or self-care (01) ==
PROVIDERS: PCP Internal Medicine; Visit Provider Physician Assistant
DX: N30.00 Acute cystitis without hematuria (principal); N89.8 Other specified noninflammatory disorders of vagina; Z13.9 Encounter for screening, unspecified

== ENCOUNTER 2024-11-20 11:59 | Outpatient (REF) | payer OTHER, SELFPAY ==
[2024-11-21 10:05] LABS: Bacterial Vaginosis PCR POSITIVE (Negative); Candida Group PCR NOT DETECTED (Not Detect); Candida glab krusei PCR NOT DETECTED (Not Detect); Trichomonas vaginalis PCR NOT DETECTED (Not Detect)
== END 2024-11-20 12:00 | disposition home or self-care (01) ==
LOC: HO.LAB 11:59
PROVIDERS: Physician Assistant; PCP Internal Medicine
DX: N89.8 Other specified noninflammatory disorders of vagina (principal); K59.03 Drug induced constipation; B19.20 Unspecified viral hepatitis C without hepatic coma
CPT/HCPCS: 81515; 99212

== ENCOUNTER 2024-11-20 11:59 | Outpatient (AMB) | payer OTHER, SELFPAY ==
--- NOTE | 2024-11-20 12:01 | MHC.OFFWIV ---
Intake Vital Signs 11/20/24 12:04 BP 122/80 Blood Pressure Location Lt brachial Position Sitting Pulse 78 Pulse Source Pulse Oximeter Pulse Oximetry (%) 96 Oxygen Delivery Method Room Air Intake Visit Reasons: EP ?vaginal infection Intake Note: Patient here for BV that never cleared up last month. Patient Tobacco Use Status: Current everyday Tobacco user Allergies bees Allergy (Severe, Verified 11/20/24 12:03) anphylaxis, anaphylaxis aspirin [ASPIRIN] Allergy (Unknown, Verified 11/20/24 12:03) UNKNOWN, advised not to take Do you need a note to return to daycare/school/sports/work: No HPI HPI Comments History of Present Illness Details History of Present Illness Physical Exam General: Cooperative, healthy appearing, comfortable, no acute distress and well developed Orientation: Patient oriented x3 Limitations: No limitations Head: Normal to inspection Ears: Hearing grossly normal bilaterally Nose: Normal External nose present Face and sinus: Normal facial exam Eyes: Appearance normal, both eyes and all related structures Neck: Normal visual inspection and Yes full ROM Respiratory: Normal respiratory effort and able to speak in complete sentences. Clear to auscultation bilaterally Cardiovascular: Regular rate and rhythm. Normal S1 and S2 Skin: No rashes or lesions noted Neuro: Patient oriented x3 Extremities: Normal to inspection [facility] Medical History (Updated 11/20/24 @ 12:50 by Angi Devries PA-C) UTI (urinary tract infection) Acute hip pain Vaginal discharge Productive cough Wrist pain, left Bacterial vaginosis Right knee pain Vaginal discharge Microscopic hematuria Bacterial vaginosis Well woman exam Elevated alkaline phosphatase level Family history of colon cancer Arthralgia of both knees ADHD (attention deficit hyperactivity disorder) Anxiety and depression Termination of LGSIL (low grade squamous intraepithelial dysplasia) History of myocardial infarction History of substance abuse History of abnormal cervical Pap smear Surgical History Hx of esophagogastroduodenoscopy History of section Family History Father Arthritis HTN (hypertension) Dyslipidemia Mental health disorder Mother Fibromyalgia Breast cancer Arthritis HTN (hypertension) Dyslipidemia Sister Breast cancer, Onset Age: 21 Cervical cancer, Onset Age: 21 Sister Colon cancer Maternal Uncle Stomach cancer Paternal Uncle Cancer Brother Substance use disorder Social History (Reviewed 08/30/23 @ 10:49 by AGUSTO Mcallister Housing: Apartment Alcohol intake: never Patient Tobacco Use Status: Current everyday Tobacco user Cigarettes Per Day: 10 Years Smoked: 15 e-Cigarette/Vaping Use: Currently Using Substance Use Type: Heroin Current occupational status: unemployed Cognitive needs: No Hearing needs: No Vision needs: No Female Reproductive History Menstrual Age of Menarche: 13 Review of Systems Const All systems reviewed & are unremarkable except as noted in HPI and below Physical Exam Vital Signs: Last Vital Signs Pulse 78 11/20/24 12:04 BP 122/80 11/20/24 12:04 Pulse Ox 96 11/20/24 12:04 Oxygen Delivery Method Room Air 11/20/24 12:04 Assessment & Plan Assessment & Plan (1) Vaginal odor: Code(s): N89.8 - Other specified noninflammatory disorders of vagina Plan: Persistent bacterial vaginosis will be reevaluated with a self-administered swab, and topical treatment will be prescribed if necessary, as per pt preference. Patient education focused on avoiding soaps and bubble baths in the vaginal area. Hepatitis C follow-up after a positive test during incarceration was advised, with possible specialist consultation. Recurrent UTIs may benefit from lifestyle changes. Praise for six months of sobriety was offered, promoting continued abstinence from substances for health improvement. Patient was informed and verbally consented to the use of an ambient scribe for clinic note documentation during this visit. (2) Constipation: Code(s): K59.00 - Constipation, unspecified Qualifiers: Constipation type: drug induced constipation Qualified Code(s): K59.03 - Drug induced constipation Plan: Management of constipation involved recommending daily fiber supplements and hydration, with as-needed use of MiraLAX or Dulcolax. The significant family history of colon cancer prompted discussions about re-evaluating the need for a colonoscopy and possibly involving a thread winder. Sent message to PCP for referral. (3) Hepatitis C test positive: Code(s): B19.20 - Unspecified viral hepatitis C without hepatic coma Plan: Hepatitis C follow-up after a positive test during incarceration was advised, with message sent to PCP for appointment for follow up testing. Praise for six months of sobriety was offered, promoting continued abstinence from substances for health improvement. Orders: Orders Bacterial Vaginosis Panel Today N89.8 - Other specified noninflammatory disorders of vagina Coding Level of Care Code Est Pt Level 4 (14314) Diagnoses Vaginal odor N89.8 Drug-induced constipation K59.03 Constipation type: drug induced constipation Hepatitis C test positive B19.20
[2024-11-20 12:04] VITALS: BP 122/80; PULSE 78; O2SAT 96
== END 2024-11-20 13:52 | disposition home or self-care (01) ==
PROVIDERS: PCP Internal Medicine; Visit Provider Physician Assistant
DX: N89.8 Other specified noninflammatory disorders of vagina (principal); K59.03 Drug induced constipation; B19.20 Unspecified viral hepatitis C without hepatic coma

== ENCOUNTER 2024-12-26 13:17 | Outpatient (AMB) | payer OTHER, SELFPAY ==
--- NOTE | 2024-12-26 13:18 | A.OFFPC_ITS ---
Vital Signs 12/26/24 13:19 Height 5 ft 2 in Weight 168 lb 8 oz BMI 30.8 BP 126/84 Blood Pressure Location Lt brachial Position Sitting Respiration 19 Pulse 76 Pulse Source Pulse Oximeter Pulse Oximetry (%) 96 Oxygen Delivery Method Room Air Intake Visit Reasons: newly dx'd with Hep C Intake Note: Pt is here today for newly diagnose with hep C and also pt mentions she recently had diagnosed with BV and symptoms worsened after completing medication. Allergies bees Allergy (Severe, Verified 01/06/25 00:44) anphylaxis, anaphylaxis aspirin [ASPIRIN] Allergy (Unknown, Verified 01/06/25 00:44) UNKNOWN, advised not to take Medication List - Last Reconciled 12/26/24 by Ting Mims MD buprenorphine ER (Sublocade) mg subcut .qmonth clonidine HCl mg PO Tobacco use date assessed: 12/26/24 Dental Screening Dental Screen Date: 12/26/24 HPI newly dx'd with Hep C HPI Details 45-year-old lady, with history of substa nce abuse currently on buprenorphine ER and clonidine, who states that she was recently diagnosed with hepatitis-C while in correction recently, here today needing a referral to see a tunnel miner for treatment. She has been complaining of feeling fatigued, thinning hair, and generalized joint pains and ache in his for the last several months. Denies any accompanying fever no abdominal pain,, no jaundice. She was recently seen at the walk-in clinic and treated for bacterial vaginosis , with initial improvement but now complains of recurrent symptoms [facility] Medical History (Updated 12/26/24 @ 13:52 by Ting Mims MD) Thinning hair Vaginosis Colon cancer screening UTI (urinary tract infection) Acute hip pain Vaginal discharge Productive cough Wrist pain, left Bacterial vaginosis Right knee pain Vaginal discharge Microscopic hematuria Bacterial vaginosis Well woman exam Elevated alkaline phosphatase level Family history of colon cancer Arthralgia of both knees ADHD (attention deficit hyperactivity disorder) Anxiety and depression Termination of LGSIL (low grade squamous intraepithelial dysplasia) History of myocardial infarction History of substance abuse History of abnormal cervical Pap smear Surgical History Hx of esophagogastroduodenoscopy History of section Family History Father Arthritis HTN (hypertension) Dyslipidemia Mental health disorder Mother Fibromyalgia Breast cancer Arthritis HTN (hypertension) Dyslipidemia Sister Breast cancer, Onset Age: 21 Cervical cancer, Onset Age: 21 Sister Colon cancer Maternal Uncle Stomach cancer Paternal Uncle Cancer Brother Substance use disorder Social History Housing: Apartment Alcohol intake: never Patient Tobacco Use Status: Current everyday Tobacco user Cigarettes Per Day: 10 Years Smoked: 15 e-Cigarette/Vaping Use: Currently Using Substance Use Type: Heroin Current occupational status: unemployed Cognitive needs: No Hearing needs: No Vision needs: No Female Reproductive History Menstrual Age of Menarche: 13 Questionnaire PHQ-9 Over the last 2 weeks, how often have you been bothered by any of the following problems? 1. Little interest or pleasure in doing things: several days 2. Feeling down, depressed, or hopeless: not at all 3. Trouble falling or staying asleep, or sleeping too much: several days 4. Feeling tired or having little energy: several days 5. Poor appetite or overeating: several days 6. Feeling bad about yourself - or that you are a failure or have let yourself or your family down: not at all 7. Trouble concentrating on things, such as reading the newspaper or watching television: several days 8. Moving or speaking so slowly that other people could have noticed. Or the opposite - being so fidgety or restless that you have been moving around a lot more than usual: not at all 9. Thoughts that you would be better off or of hurting yourself in some way: not at all Total score: 5 Depression Screening Interpretation: Negative Depression Screening Done: Yes 22446 - PHQ-9 Billing: Yes Source: Developed by Drs. Ruben Walls, Michela Jacobs, Eric Flores and colleagues, with an educational dina from [employer]. Thrive Questionnaire Date Thrive assessed: 12/26/24 I am a: Patient What is your living situation today?: I have a steady place to live Within the past 12 months, did the food you bought not last and you didn't have the money to get more?: Never true Within the past 12 months, did you worry whether your food would run out before you got money to buy more?: Never true Do you have trouble paying for medicines?: Yes Do you have trouble getting transportation to medical appointments?: No Do you have trouble paying your heating and electricity bill?: Yes Do you have trouble taking care of your child, family member or friend?: No Do you have trouble with day-to-day activities such as bathing, preparing meals, shopping, managing finances, etc.?: No Are you currently unemployed and looking for a job?: Yes Are you interested in more education?: Yes THRIVE Score: 1 YOSEPH-7 AMB Questionnaire YOSEPH-7 Date YOSEPH - 7 assessed: 12/26/24 Feeling nervous, anxious, or on edge: 1 = Several days Not being able to stop or control worryin = Not at all Worrying too much about different things: 1 = Several days Trouble relaxin = Several days Being so restless that it is hard to sit still: 0 = Not at all Becoming easily annoyed or irritable: 1 = Several days Feeling afraid as if something awful might happen: 1 = Several days Total YOSEPH-7 score (0-4 normal; 5-9 mild; 10-14 moderate; 15-21 severe): 5 Source: Developed by Drs. Ruben Walls, Michela Jacobs, Eric Flores and colleagues, with an educational dina from [employer]. Review of Systems Const Reports as per HPI, Denies chills, Denies fever(s) and Denies poor appetite ENT Reports no additional complaints Card Denies chest pain, Denies rapid heart rate and Denies lightheadedness Resp Reports no additional complaints GI Reports no additional complaints Reports as per HPI and Denies dysuria Musc Reports no additional complaints and Reports as per HPI Skin/Breast Denies breast pain, Denies breast mass, Denies pruritus and Denies rash Neuro Reports no additional complaints Psych Reports no additional complaints Endo Reports no additional complaints Tyler/Lymph Reports no additional complaints Aller/Immun Reports no additional complaints Physical exam (Primary Care) Vital Signs: Last Vital Signs Pulse 76 12/26/24 13:19 Resp 19 12/26/24 13:19 BP 126/84 12/26/24 13:19 Pulse Ox 96 12/26/24 13:19 Oxygen Delivery Method Room Air 12/26/24 13:19 BMI result Body Mass Index 30.8 Tobacco/Smoking Status: Tobacco use Status Tobacco use date assessed 12/26/24 12/26/24 13:19 Patient Tobacco Use Status Current everyday Tobacco 12/26/24 13:19 e-Cigarette/Vaping Use Currently Using 12/26/24 13:19 PHQ-9: PHQ-9 Score PHQ-9: Total score 8 12/26/24 13:59 Depression Screening Interpretation: Negative Thrive Assessment: Date of Thrive Assessment Date Thrive assessed 12/26/24 12/26/24 13:59 Const Other: Alert oriented x3, no acute distress noted Orientation/consciousness: patient oriented x3 HENPA General nose exam: Normal external nose present and No nasal discharge present Face and sinus: Yes face symmetric Mouth: Normal oral and palatal mucosa present, oropharynx normal and moist mucous membranes Neck Neck: Yes full ROM, Yes no lymphadenopathy and Yes supple Resp Auscultation: clear to auscultation bilaterally Cardio Other: S1-S2 present regular rate and rhythm GI Palpation (GI): Soft to palpation, nontender, no guarding and no masses Skin General skin exam: no rashes or lesions noted Hair: general thinning Neuro General: patient oriented x3, gait normal, tone normal, moves all extremities, Normal light touch and pain sensation and no focal motor deficits Extrem Other: No gross bone deformity or joint swelling noted normal range of motion of knee joints bilateral, nontender to palpation Coding Level of Care Code Est Pt Level 4 (43578) Diagnoses Hepatitis C test positive B19.20 Screening for malignant neoplasm of cervix Z12.4 Vaginosis N76.0 Thinning hair L65.9 Additional Codes PHQ-9 - 27241 - PHQ-9 Billing: Yes ([id number]) Assessment & Plan Assessment & Plan (1) Hepatitis C test positive: Code(s): B19.20 - Unspecified viral hepatitis C without hepatic coma Category: Medical Plan: Has been diagnosed while in custodial to have positive hepatitis-C , unable to get a copy of the test results, will order a hepatitis ABC profile, hepatitis-C viral load and genotype. (2) Screening for malignant neoplasm of cervix: Code(s): Z12.4 - Encounter for screening for malignant neoplasm of cervix Plan: Referred to [facility] [place] [facility] for her routine Pap and pelvic exam. (3) Vaginosis: Code(s): N76.0 - Acute vaginitis Category: Medical Plan: Has had recurrent vaginosis infection, refilled a prescription for metronidazole 500 mg to take 1 every 12 hours for 7 days. Ordered a referral to [facility] [place] [facility] (4) Thinning hair: Code(s): L65.9 - Nonscarring hair loss, unspecified Category: Medical Plan: Advised to avoid using a lot of chemicals in her hair. Stop using hair dyes, harsh chemicals on hair, will check a CBC, TSH with reflex free T4, comprehensive metabolic panel Orders: Orders Hepatitis C Genotype 12/27/24 B19.20 - Unspecified viral hepatitis C without hepatic coma Comprehensive Java. Panel Fast 12/27/24 B19.20 - Unspecified viral hepatitis C without hepatic coma Hepatitis A,B,C Profile 12/27/24 B19.20 - Unspecified viral hepatitis C without hepatic coma Hepatitis C Viral Load 12/27/24 B19.20 - Unspecified viral hepatitis C without hepatic coma Complete Blood Count Auto Diff 12/27/24 B19.20 - Unspecified viral hepatitis C without hepatic coma TSH reflex Free T4 12/27/24 L65.9 - Nonscarring hair loss, unspecified, K59.09 - Other constipation, Z13.220 - Encounter for screening for lipoid disorders Lipid Panel 12/27/24 L65.9 - Nonscarring hair loss, unspecified, K59.09 - Other constipation, Z13.220 - Encounter for screening for lipoid disorders Referrals [facility] Referral Z12.4 - Encounter for screening for malignant neoplasm of cervix, N76.0 - Acute vaginitis Medications: Refilled metronidazole 500 mg PO Q12H 14 tabs 0RF
[2024-12-26 13:19] VITALS: BP 126/84; PULSE 76; RESP 19; O2SAT 96; BMI 30.8
== END 2024-12-26 13:54 | disposition home or self-care (01) ==
LOC: HO.HMCC 13:18
PROVIDERS: PCP Internal Medicine; Visit Provider Internal Medicine
DX: B19.20 Unspecified viral hepatitis C without hepatic coma (principal); Z12.4 Encounter for screening for malignant neoplasm of cervix; N76.0 Acute vaginitis; L65.9 Nonscarring hair loss, unspecified

== ENCOUNTER → 2024-12-26 13:17 | Outpatient (BNVA) | payer OTHER, SELFPAY | PROVIDERS: PCP Internal Medicine; Visit Provider Internal Medicine | DX: B19.20 Unspecified viral hepatitis C without hepatic coma (principal); N76.0 Acute vaginitis; L65.9 Nonscarring hair loss, unspecified; K59.09 Other constipation | CPT/HCPCS: 96127; 99212 ==

== ENCOUNTER 2024-12-27 09:02 | Outpatient (REF) | payer OTHER, SELFPAY ==
[2024-12-27 10:18] LABS: MANUAL DIFF FLAG NO
[2024-12-27 10:28] LABS: Basophils Absolute Auto 0.1 X10*3/uL (0.0-0.2); Basophils Percent Auto 0.8 % (0-2); Eosinophils Absolute Auto 0.2 X10*3/uL (0.0-0.4); Eosinophils Percent Auto 3.7 % (0-4); Hematocrit 39.3 % (37.0-47.0); Hemoglobin 13.9 g/dl (12.0-16.0); Imm Gran Abs Auto 0.06 X10*3/uL (0.00-0.03); Imm Gran Pct Auto 0.9 % (0.0-0.4); Lymphocytes Absolute Auto 2.3 X10*3/uL (1.2-4.9); Lymphocytes Percent Auto 34.8 % (20-40); Mean Corpuscular HGB Conc 35.4 g/dl (31.0-35.0); Mean Corpuscular Volume 90.6 fL (80.0-98.0); Mean Platelet Volume 10.8 fL (9.4-12.3); Monocytes Absolute Auto 0.8 X10*3/uL (0.1-1.2); Monocytes Percent Auto 11.9 % (2-11); Neutrophils Absolute Auto 3.1 x10*3/uL (2.0-8.3); Neutrophils Percent Auto 47.9 % (45-73); Platelet Count 281 X10*3/uL (160-400); Red Blood Count 4.34 X10*6/uL (4.20-5.50); Red Cell Distribution Width 13.6 % (11.0-16.0); White Blood Count 6.5 X10*3/uL (4.8-10.8)
[2024-12-27 11:35] LABS: Alanine Aminotransferase 455 U/L (0-31); Albumin Level 3.8 g/dL (3.5-5.0); Alkaline Phosphatase 142 U/L (39-117); Anion Gap 11 (12-20); Aspartate Amino Transferase 304 U/L (5-31); Bilirubin Total 0.6 mg/dL (0.0-1.0); Blood Urea Nitrogen 12 mg/dL (9-16); Calcium 9.1 mg/dL (8.4-10.2); Carbon Dioxide 25 mmol/L (22-29); Chloride 109 mmol/L (96-108); Cholesterol 92 mg/dL (<200); Estimated Glomerular Filt Rate > 60; Glucose Fasting 104 mg/dL (60-99); HDL Cholesterol 42 mg/dL (>40); LDL Cholesterol Calculated 44 mg/dL (<100); Potassium 4.5 mmol/L (3.3-5.1); Sodium 140 mmol/L (135-145); Total Protein 7.3 g/dL (6.5-8.0); Triglycerides 30 mg/dL (<150)
[2024-12-27 11:40] LABS: TSH reflex Free T4 1.05 uIU/mL (0.32-4.0)
[2024-12-27 12:22] LABS: HBS Num1 117.61 mIU/mL (0-7.99); HBc Num1 0.08 S/CO (0.00-0.79); HBsAGNum1 0.42 S/CO (0.00-0.99); Hepatitis A Antibody IgM 0.18 Index (0-0.79); Hepatitis B Core Antibody Nonreactive (Nonreactive); Hepatitis B Surface Antigen Negative (Negative); ~HepC Num1 9.89 S/CO (0.00-0.79); ~Hepatitis A Antibody IgM Nonreactive (Nonreactive); ~Hepatitis B Surface Antibody REACTIVE (Nonreactive); ~Hepatitis C Antibody Reactive (Nonreactive)
[2024-12-30 20:39] LABS: HCV RNA PCR Qn 6.84 Log IU/mL (NOT DETECTED); HCV RNA PCR Qn 6890000 IU/mL (NOT DETECTED)
[2025-01-05 08:23] LABS: HCV Genotype LiPA 3 (Not Detected)
== END 2024-12-27 09:03 | disposition home or self-care (01) ==
LOC: HO.HMGCLDS 09:02
PROVIDERS: PCP Internal Medicine; Visit Provider Internal Medicine
DX: B19.20 Unspecified viral hepatitis C without hepatic coma (principal); L65.9 Nonscarring hair loss, unspecified; K59.09 Other constipation; Z13.220 Encounter for screening for lipoid disorders
CPT/HCPCS: 36415; 80053; 80061; 84443; 85025; 86704; 86706; 86709; 86803; 87340; 87522; 87902

== ENCOUNTER 2025-03-20 14:27 | Outpatient (AMB) | payer OTHER, SELFPAY ==
--- NOTE | 2025-03-20 14:33 | AM.OFFWIN_ITS ---
Intake Vital Signs 03/20/25 14:39 Height 5 ft 2 in Weight 160 lb BMI 29.3 BP 128/66 Blood Pressure Location Rt brachial Position Sitting Pulse 91 Pulse Source Pulse Oximeter Temp 98.3 F Temp Source Oral Pulse Oximetry (%) 98 Oxygen Delivery Method Room Air Intake Visit Reasons: EP UTI?? Intake Note: pt presents with bladder pressure, dark urine, urine frequency, odor to urine, vaginal odor Patient Tobacco Use Status: Current everyday Tobacco user Allergies bees Allergy (Severe, Verified 03/20/25 14:39) anphylaxis, anaphylaxis aspirin (ASPIRIN) Allergy (Unknown, Verified 03/20/25 14:39) UNKNOWN, advised not to take Do you need a note to return to daycare/school/sports/work: No HPI HPI Comments History of Present Illness Details History - The patient is a 45-year-old female pr esenting with recurrent urinary tract infections and bacterial vaginosis. - She reports recurrent urinary tract in fections over the past four months, with symptoms persisting despite previous antibiotic treatments. - Previously prescribed antibiotics in and Metronidazole pills in December, but symptoms have persisted. - Experiences vaginal discharge, describ ed as white and less than previously, and has been advised to avoid certain soaps. - Reports abnormal vaginal bleeding, whi ch is unusual as she has not had periods for almost 15 years. - Has not been using protection during i ntercourse and has been advised to urinate after sexual activity to prevent UTIs. - She has been having abdominal cramps. - She denies CP, SOB, back pain, hematur ia, n/v/d. Physical Exam General: Cooperative, healthy appearing, comfortable, no acute distress and well developed Cardiac: Normal S1 and S2. RRR, no M/R/G noted. Respiratory: Normal respiratory effort and able to speak in complete sentences. Clear to auscultation bilaterally. No w/r/r noted. Skin: No rashes or lesions noted. GI: Normal inspection. Normal BS noted. Soft, non-tender, non-distended. No TTP of all 4 quadrants. No guarding or rebound tenderness noted. Reports abdominal pain. Back: Negative CVA bilaterally Patient was informed and verbally consented to the use of an ambient scribe for clinic note documentation during this visit. [facility] Medical History (Updated 12/26/24 @ 13:52 by Ting Mims MD) Thinning hair Vaginosis Colon cancer screening UTI (urinary tract infection) Acute hip pain Vaginal discharge Productive cough Wrist pain, left Bacterial vaginosis Right knee pain Vaginal discharge Microscopic hematuria Bacterial vaginosis Well woman exam Elevated alkaline phosphatase level Family history of colon cancer Arthralgia of both knees ADHD (attention deficit hyperactivity disorder) Anxiety and depression Termination of LGSIL (low grade squamous intraepithelial dysplasia) History of myocardial infarction History of substance abuse History of abnormal cervical Pap smear Surgical History Hx of esophagogastroduodenoscopy History of section Family History Father Arthritis HTN (hypertension) Dyslipidemia Mental health disorder Mother Fibromyalgia Breast cancer Arthritis HTN (hypertension) Dyslipidemia Sister Breast cancer, Onset Age: 21 Cervical cancer, Onset Age: 21 Sister Colon cancer Maternal Uncle Stomach cancer Paternal Uncle Cancer Brother Substance use disorder Social History Housing: Apartment Alcohol intake: never Patient Tobacco Use Status: Current everyday Tobacco user Cigarettes Per Day: 10 Years Smoked: 15 e-Cigarette/Vaping Use: Currently Using Substance Use Type: Heroin Current occupational status: unemployed Cognitive needs: No Hearing needs: No Vision needs: No Female Reproductive History Menstrual Age of Menarche: 13 Review of Systems Const All systems reviewed & are unremarkable except as noted in HPI and below Physical Exam Vital Signs: Last Vital Signs Temp 98.3 F 03/20/25 14:39 Pulse 91 03/20/25 14:39 BP 128/66 03/20/25 14:39 Pulse Ox 98 03/20/25 14:39 Oxygen Delivery Method Room Air 03/20/25 14:39 BMI result Body Mass Index 29.3 Assessment & Plan Assessment & Plan (1) UTI (urinary tract infection): Code(s): N39.0 - Urinary tract infection, site not specified Qualifiers: Hematuria presence: without hematuria Urinary tract infection type: acute cystitis Qualified Code(s): N30.00 - Acute cystitis without hematuria Plan: Most likely UTI UA in the office +leuko, nitrates, uro, pro, ketones, 1+noemi, blood Plan - Plan to send urine culture - prescribe antibiotics for the UTI. - drink fluids - follow up with PCP (2) Vaginal discharge: Code(s): N89.8 - Other specified noninflammatory disorders of vagina Plan Most likely BV vs yeast vs STD Plan - Plan to perform swabs today - will call her with the results - will treat the results Orders: Orders Bacterial Vaginosis Panel Today N89.8 - Other specified noninflammatory disorders of vagina AMB Urinalysis Automated Today Z13.9 - Encounter for screening, unspecified Urine Culture Today N39.0 - Urinary tract infection, site not specified CT NG by PCR Vag/Cerv Today N89.8 - Other specified noninflammatory disorders of vagina Medications: New cefuroxime axetil 500 mg PO Q12H 14 tabs 0RF 7 days Coding Level of Care Code Est Pt Level 4 (45594) Diagnoses Acute cystitis without hematuria N30.00 Hematuria presence: without hematuria Urinary tract infection type: acute cystitis Vaginal discharge N89.8
[2025-03-20 14:39] VITALS: BP 128/66; PULSE 91; TEMP 36.8; O2SAT 98; BMI 29.3
== END 2025-03-20 15:53 | disposition home or self-care (01) ==
PROVIDERS: PCP Internal Medicine; Visit Provider Physician Assistant Medical
DX: N30.00 Acute cystitis without hematuria (principal); N89.8 Other specified noninflammatory disorders of vagina; Z13.9 Encounter for screening, unspecified

== ENCOUNTER 2025-03-20 14:27 | Outpatient (REF) | payer OTHER, SELFPAY ==
[2025-03-21 11:37] LABS: Bacterial Vaginosis PCR POSITIVE (Negative); Candida Group PCR DETECTED (Not Detect); Candida glab krusei PCR DETECTED (Not Detect); Trichomonas vaginalis PCR NOT DETECTED (Not Detect)
[2025-03-21 12:07] LABS: CT PCR NOT DETECTED (Not Detect.); NG PCR NOT DETECTED (Not Detect.)
== END 2025-03-20 14:28 | disposition home or self-care (01) ==
LOC: HO.LAB 14:27
PROVIDERS: PCP Internal Medicine; Visit Provider Physician Assistant Medical
DX: N30.00 Acute cystitis without hematuria (principal); N89.8 Other specified noninflammatory disorders of vagina; R35.0 Frequency of micturition; R10.9 Unspecified abdominal pain; Z11.3 Encounter for screening for infections with a predominantly sexual mode of transmission; Z11.8 Encounter for screening for other infectious and parasitic diseases
CPT/HCPCS: 81003; 81515; 87086; 87088; 87186; 87491; 87591; 99212

== ENCOUNTER 2025-04-17 09:53 | Outpatient (AMB) | payer OTHER, SELFPAY ==
--- NOTE | 2025-04-17 09:54 | A.OFFVIS_ITS ---
Vital Signs 04/17/25 09:59 Height 5 ft 2 in Weight 144 lb BMI 26.3 BP 146/90 H Blood Pressure Location Rt brachial Position Sitting Pulse 88 Pulse Source Pulse Oximeter Pulse Oximetry (%) 97 Oxygen Delivery Method Room Air Intake Visit Reasons: Mack screening, Viral Hep C Intake Note: New/Prev Est pt for initial colo screening? Appeared that pt had EGD previously and was going to have colo but had that procedure cancelled? 2020 w/ Dr. Baca CC: C.O. constipation and intermittent abd pain. Pt currently on suboxone for previous substance use. Hide And Skin Colerer Required: No Accompanied by: Self / Same As Patient Allergies bees Allergy (Severe, Verified 03/20/25 14:39) anphylaxis, anaphylaxis aspirin (ASPIRIN) Allergy (Unknown, Verified 03/20/25 14:39) UNKNOWN, advised not to take HPI HPI Mack screening, Viral Hep C: Details: LAST VISIT WITH DR. BACA NOVEMBER 2020 40 YF with bipolar- ff'd [facility], abnormal paps, hx of substance abuse. hx of myocardial infarction with chronic Hep C (Genotype 1a) with elevated LFTs. Patient has a past history of IV drug abuse and denies needle sharing. Lab evaluation in March 2019 showed elevated transaminases. Hepattis C RNA (PCR) was > 4 million IU/. Pt was started on treatment with Harvoni for 8 weeks in 3rd week of April with decrease in Hep C viral load. She finished treatment with 8 weeks of Harvoni on 07/04/19. FU Hepatitis C viral load was negative in 01/2020. Hepatitis-B serologies reveal lack of immunity to hepatitis B and she was given hepatitis-B vaccination, 2nd dose on 04/27/19 - last dose was administered on 12/04/20 by ZAHRAA Soni RN. At her previous visit, pt was referred to oncology clinic for genetic testing due to positive family history of colon cancer in multiple family members. Genetic testing is no longer available through the Oncology Clinic. Pt was consented for Genetic Testing and buccal swab was obtained by Tadeo (Surgery Clinic RN). Testing could not be performed due to inadequate specimen. A blood sample was obtained by the lab and submitted for Genetic testing which was negative Pt was scheduled for an EGD and a colonoscopy on 10/02/19 and was a no show for her appt. 10/07/20 EGD showed a small hiatal hernia and gastritis. Colonoscopy was not performed since patient did not get her prep and will be scheduled in Aug or January or February 2021. Follow-up GI clinic visit 1-2 weeks after her procedures. Patient was advised to start Linzess 45 micro g once daily for constipation. Medications: New: linaclotide (Linzess) 145 mcg PO DAILY 30 days 30 caps 3RF K59.09 TODAY'S VISIT: Patient is here today to discuss going for colonoscopy. Patient had not prep well and last colonoscopy was never completed. Patient has never followed up since 2020. Reinfected with hep C. As mentioned above patient was treated in 2018 with Arron. Recently PCP check viral load with positive results for over 6,000,000. Patient is due to go for colonoscopy. Denies any issues with anesthesia in the past. No history of sleep apnea. Not on any anticoagulation medication. However patient does admit to having trouble moving her bowels. Currently is taking Dulcolax and it is not working. She was given script in the past for Linzess, however she does not remember taking it. Patient denies any cardiac or respiratory symptoms.. Patient is also now on Suboxone [facility] Medical History Thinning hair Vaginosis Colon cancer screening UTI (urinary tract infection) Acute hip pain Vaginal discharge Productive cough Wrist pain, left Bacterial vaginosis Right knee pain Vaginal discharge Microscopic hematuria Bacterial vaginosis Well woman exam Elevated alkaline phosphatase level Family history of colon cancer Arthralgia of both knees ADHD (attention deficit hyperactivity disorder) Anxiety and depression Termination of LGSIL (low grade squamous intraepithelial dysplasia) History of myocardial infarction History of substance abuse History of abnormal cervical Pap smear Surgical History Hx of esophagogastroduodenoscopy History of section Family History Father Arthritis HTN (hypertension) Dyslipidemia Mental health disorder Mother Fibromyalgia Breast cancer Arthritis HTN (hypertension) Dyslipidemia Sister Breast cancer, Onset Age: 21 Cervical cancer, Onset Age: 21 Sister Colon cancer Maternal Uncle Stomach cancer Paternal Uncle Cancer Brother Substance use disorder Social History Housing: Apartment Alcohol intake: never Patient Tobacco Use Status: Current everyday Tobacco user Cigarettes Per Day: 10 Years Smoked: 15 e-Cigarette/Vaping Use: Currently Using Substance Use Type: Heroin Current occupational status: unemployed Cognitive needs: No Hearing needs: No Vision needs: No Female Reproductive History Menstrual Age of Menarche: 13 Review of Systems Const Denies weight gain and Denies weight loss ENT Reports no additional complaints, Denies dysphagia and Denies odynophagia Card Reports no additional complaints Resp Reports no additional complaints GI Denies abdominal pain, Denies belching, Denies melena, Denies bloating, Denies change in bowel habits, Reports constipation, Denies dysphagia, Denies excessive flatus, Denies dyspepsia, Denies heartburn, Denies diarrhea, Denies loose stools, Denies nausea, Denies odynophagia and Denies vomiting Reports no additional complaints Musc Reports no additional complaints Neuro Reports no additional complaints Psych Reports no additional complaints Endo Reports no additional complaints Physical Exam Vital Signs: Last Vital Signs Pulse 88 04/17/25 09:59 BP 146/90 H 04/17/25 09:59 Pulse Ox 97 04/17/25 09:59 Oxygen Delivery Method Room Air 04/17/25 09:59 BMI result Body Mass Index 26.3 Const General: healthy appearing, no acute distress and well developed Nutritional Appearance: well nourished Orientation/consciousness: patient oriented x3 Resp Effort & Inspection: normal respiratory effort, able to speak in complete sentences, no tracheal deviation and symmetric chest movement Auscultation: clear to auscultation bilaterally Cardio Rate: regular rate GI Inspection: Yes normal to inspection and No distended Palpation (GI): Soft to palpation, not firm, nontender and No hepatosplenomegaly present Auscultation: normal bowel sounds General: Yes no CVA tenderness Back/Spine/Pelvis Back: no CVA tenderness Skin General skin exam: elasticity normal, turgor normal and dry skin Neuro General: patient oriented x3 Psych Appearance: grossly normal Mental Status: mental status grossly normal Assessment & Plan Assessment & Plan (1) Colon cancer screening: Code(s): Z12.11 - Encounter for screening for malignant neoplasm of colon Category: Medical (2) Constipation: Code(s): K59.00 - Constipation, unspecified Category: Medical Qualifiers: Constipation type: drug induced constipation Qualified Code(s): K59.03 - Drug induced constipation (3) Hepatitis C test positive: Code(s): B19.20 - Unspecified viral hepatitis C without hepatic coma Category: Medical Plan Patient denies any cardiac or respiratory symptoms.? Reports constipation. Sometimes no BM for over a week. Using Dulcolax. Will start taking Linzess 290 mcg daily. We will do Mag citrate prep as MiraLax does not work for her. She will start 2 days before with 1 bottle and then follow-up with 2 additional bottles day before procedure. Denies any issues with anesthesia in the past.? Denies any history of sleep apnea.? Viral load for hep C high. Will check genotype, HIV. Patient will be started on antiviral. Will need hep a vaccine.? Not on any anticoagulation therapy.? Family history of CRC. Patient denies melena, hematochezia, unintentional weight loss or ribbon like stools.? Discussed at length the pre-procedure,? prep, diet & medications as well as what to expect prior, during and after the procedure.?? Stressed the importance of g ood bowel prep.? Recommended the use of Vaseline or Calmoseptine OTC & baby wipes with bowel movements to promote comfort.? ?Patient verbalizes understanding and agrees to plan of care.? She was given the opportunity to ask questions and all questions answered.? We will see her after the procedure.? Orders: Orders Hepatitis C Genotype Today B19.20 - Unspecified viral hepatitis C without hepatic coma HIV Ab/Ag Today R79.89 - Other specified abnormal findings of blood chemistry Hepatitis C Viral Load Today Z86.19 - Personal history of other infectious and parasitic diseases Medications: New linaclotide (Linzess) 290 mcg PO QAM 30 caps 4RF K59.00 - Constipation, unspecified magnesium citrate Drink one bottle at 17:00 and 2nd bottle at 22:00 296 mL PO ONCE 296 mL 2RF Z12.11 - Encounter for screening for malignant neoplasm of colon Coding Level of Care Code New Pt Level 4 (01504) Complex EM visit Add On G2211 Diagnoses Colon cancer screening Z12.11 Drug-induced constipation K59.03 Constipation type: drug induced constipation Hepatitis C test positive B19.20 Time Spent (min) 50 Comment 35 minutes spent with patient and additional 15 minutes spent reviewing her records
[2025-04-17 09:59] VITALS: BP 146/90; PULSE 88; O2SAT 97; BMI 26.3
== END 2025-04-17 10:49 | disposition home or self-care (01) ==
PROVIDERS: PCP Internal Medicine; Visit Provider Nurse Practitioner Family
DX: Z01.818 Encounter for other preprocedural examination (principal); Z12.11 Encounter for screening for malignant neoplasm of colon; K59.03 Drug induced constipation; B19.20 Unspecified viral hepatitis C without hepatic coma
CPT/HCPCS: 99204

== ENCOUNTER → 2025-04-17 09:53 | Outpatient (BNVA) | payer OTHER, SELFPAY | PROVIDERS: PCP Internal Medicine; Visit Provider Nurse Practitioner Family | DX: Z12.11 Encounter for screening for malignant neoplasm of colon (principal); K59.03 Drug induced constipation; B19.20 Unspecified viral hepatitis C without hepatic coma | CPT/HCPCS: 99202 ==

== ENCOUNTER → 2025-04-24 10:41 | Day surgery (SDC) | payer OTHER, SELFPAY ==
--- NOTE | 2025-04-22 14:13 | HO.ANESPROP2 ---
HPI - Anesthesia Eval Consult details Narrative: 45 yr old female for colonoscopy Recently diagnosed with Hep C while in retirement H/O polysubstance use: on suboxone PMFSH Active Problems Active Problems: All Active Problems (Updated 12/26/24 @ 13:52 by Ting Mims MD) Thinning hair (Acute) Vaginosis (Acute) Colon cancer screening (Acute) Hepatitis C test positive (Acute) Constipation (Acute) UTI (urinary tract infection) (Acute) Vaginal odor (Acute) Arthralgia of both knees (Acute) Renal calculi (Acute) HPV test positive (Acute) Chronic constipation (Acute) Bipolar disorder (Acute) Hepatitis C infection (Acute) Past Medical History Medical History Thinning hair Vaginosis Colon cancer screening UTI (urinary tract infection) Acute hip pain Vaginal discharge Productive cough Wrist pain, left Bacterial vaginosis Right knee pain Vaginal discharge Microscopic hematuria Bacterial vaginosis Well woman exam Elevated alkaline phosphatase level Family history of colon cancer Arthralgia of both knees ADHD (attention deficit hyperactivity disorder) Anxiety and depression Termination of LGSIL (low grade squamous intraepithelial dysplasia) History of myocardial infarction History of substance abuse History of abnormal cervical Pap smear Family History Family History Father Arthritis HTN (hypertension) Dyslipidemia Mental health disorder Mother Fibromyalgia Breast cancer Arthritis HTN (hypertension) Dyslipidemia Sister Breast cancer, Onset Age: 21 Cervical cancer, Onset Age: 21 Sister Colon cancer Maternal Uncle Stomach cancer Paternal Uncle Cancer Brother Substance use disorder Surgical History Surgical History Hx of esophagogastroduodenoscopy History of section Social History Social History Housing: Apartment Alcohol intake: never Patient Tobacco Use Status: Current everyday Tobacco user Cigarettes Per Day: 10 Years Smoked: 15 e-Cigarette/Vaping Use: Currently Using Substance Use Type: Heroin Current occupational status: unemployed Cognitive needs: No Hearing needs: No Vision needs: No Meds Allergies Allergy/AdvReac Type Severity Reaction Status Date / Time bees Allergy Severe anphylaxis, Verified 03/20/25 14:39 anaphylaxis aspirin (ASPIRIN) Allergy Unknown UNKNOWN, Verified 03/20/25 14:39 advised not to take Home Medications ?Medication ?Instructions ?Recorded ?Confirmed ?Last Taken ?Type clonidine HCl 0.1 mg tablet mg PO 10/08/24 12/26/24 Unknown History buprenorphine 300 mg/1.5 mL mg subcut .qmonth 12/26/24 12/26/24 Unknown History solution,exten.rel.subcutaneous syringe (Sublocade) baclofen 10 mg tablet mg PO 03/20/25 Unknown History bisacodyl 5 mg tablet,delayed mg PO 04/17/25 Unknown History release buprenorphine 8 mg-naloxone 2 mg 1 film sublingual DAILY 04/17/25 Unknown History sublingual film (Suboxone) diphenhydramine HCl 25 mg capsule 25 mg PO BEDTIME 04/17/25 Unknown History (Banophen)
--- NOTE | 2025-04-24 11:32 | PC.NURSE ---
went to get patient and stepped outside to vape per staff member.
[2025-04-24 11:52] VITALS: BMI 26.1
[2025-04-24 11:57] VITALS: BP 125/74; PULSE 88; RESP 16; TEMP 36.3; O2SAT 98
[2025-04-24 12:06] LABS: UPreg QC Valid YES
[2025-04-24 12:12] LABS: Cannabinoid Screen Urine POSITIVE (Not Detect)
--- NOTE | 2025-04-24 12:44 | PC.NURSE ---
Patient's urine tox came back positive, see test results. De. Herr at the bedside to explain to patient her procedure is canceled and for the reason. Patient agreeable. Contact infor for Dr. Plaza's office provided. Pt ambulatory out of preop.
== END ==
LOC: HO.SSS 10:42
PROVIDERS: Nurse Practitioner; PCP Internal Medicine; Visit Provider Internal Medicine Gastroenterology
DX: Z12.11 Encounter for screening for malignant neoplasm of colon (principal); Z53.8 Procedure and treatment not carried out for other reasons; R82.5 Elevated urine levels of drugs, medicaments and biological substances
CPT/HCPCS: 80307; 81025

== ENCOUNTER 2025-05-02 09:56 | Outpatient (REF) | payer OTHER, SELFPAY ==
[2025-05-02 15:34] LABS: CT PCR NOT DETECTED (Not Detect.); NG PCR NOT DETECTED (Not Detect.)
[2025-05-03 08:40] LABS: HIV Num 1 0.06 S/CO (0.00-0.99)
[2025-05-03 15:13] LABS: HCV RNA PCR Qn 6.92 Log IU/mL (NOT DETECTED)
== END 2025-05-02 09:57 | disposition home or self-care (01) ==
LOC: HO.HMGCLDS 09:56
PROVIDERS: Nurse Practitioner Family; PCP Internal Medicine; Visit Provider Internal Medicine
DX: Z23 Encounter for immunization (principal); Z00.01 Encounter for general adult medical examination with abnormal findings; Z71.89 Other specified counseling; R79.89 Other specified abnormal findings of blood chemistry; N89.8 Other specified noninflammatory disorders of vagina; B19.20 Unspecified viral hepatitis C without hepatic coma; F31.9 Bipolar disorder, unspecified; K59.09 Other constipation; L65.9 Nonscarring hair loss, unspecified; N30.00 Acute cystitis without hematuria; Z79.891 Long term (current) use of opiate analgesic; Z79.899 Other long term (current) drug therapy; Z86.19 Personal history of other infectious and parasitic diseases; Z87.42 Personal history of other diseases of the female genital tract
CPT/HCPCS: 36415; 81003; 87389; 87491; 87522; 87591; 87902; 90471; 90656; 96127; 99396

== ENCOUNTER 2025-05-02 09:56 | Outpatient (AMB) | payer OTHER, SELFPAY ==
[2025-05-02 09:58] VITALS: BP 130/80; PULSE 101; RESP 15; TEMP 36.8; O2SAT 98; BMI 26.2
--- NOTE | 2025-05-02 09:58 | MHC.PC.OV ---
Vital Signs 05/02/25 09:58 Height 5 ft 2 in Weight 143 lb BMI 26.2 BP 130/80 Blood Pressure Location Rt brachial Position Sitting Respiration 15 Pulse 101 H Pulse Source Pulse Oximeter Temp 98.2 F Temp Source Oral Pulse Oximetry (%) 98 Oxygen Delivery Method Room Air Intake Visit Reasons: Annual PE Intake Note: Pt is here today for her PE Clinical Services Specialist Required: No Allergies bees Allergy (Severe, Verified 05/02/25 10:16) anphylaxis, anaphylaxis aspirin (ASPIRIN) Allergy (Unknown, Verified 05/02/25 10:16) UNKNOWN, advised not to take Medication List - Last Reconciled 05/02/25 by Ting Mims MD baclofen mg PO buprenorphine ER (Sublocade) mg subcut .qmonth buprenorphine-naloxone 8-2 mg (Suboxone) 1 film sublingual DAILY clonidine HCl mg PO linaclotide (Linzess) 290 mcg PO QAM Tobacco use date assessed: 05/02/25 Dental Screening Dental Screen Date: 05/02/25 Did you have a dental visit in the last 12 months?: Yes Did you have a dental problem in the last 6 months where you did not have access to dental care?: No Was dental information given to patient?: Patient has dentist [facility] Medical History (Updated 05/02/25 @ 10:46 by Ting Mims MD) Nonscarring hair loss Thinning hair Vaginosis Colon cancer screening UTI (urinary tract infection) Acute hip pain Vaginal discharge Productive cough Wrist pain, left Bacterial vaginosis Right knee pain Vaginal discharge Microscopic hematuria Bacterial vaginosis Well woman exam Elevated alkaline phosphatase level Family history of colon cancer Arthralgia of both knees ADHD (attention deficit hyperactivity disorder) Anxiety and depression Termination of LGSIL (low grade squamous intraepithelial dysplasia) History of myocardial infarction History of substance abuse History of abnormal cervical Pap smear Surgical History (Updated 04/24/25 @ 11:52 by Cathryn Penny RN) H/O colposcopy with cervical biopsy Hx of esophagogastroduodenoscopy History of section Family History Father Arthritis HTN (hypertension) Dyslipidemia Mental health disorder Mother Fibromyalgia Breast cancer Arthritis HTN (hypertension) Dyslipidemia Sister Breast cancer, Onset Age: 21 Cervical cancer, Onset Age: 21 Sister Colon cancer Maternal Uncle Stomach cancer Paternal Uncle Cancer Brother Substance use disorder Social History Housing: Apartment Alcohol intake: never Patient Tobacco Use Status: Current everyday Tobacco user Tobacco use type: Cigarette and Smokeless Tobacco Cigarettes Per Day: 5 Years Smoked: 15 e-Cigarette/Vaping Use: Currently Using Substance Use Type: Heroin Current occupational status: unemployed Cognitive needs: No Hearing needs: No Vision needs: No Female Reproductive History Menstrual Age of Menarche: 13 Questionnaire PHQ-9 Over the last 2 weeks, how often have you been bothered by any of the following problems? 1. Little interest or pleasure in doing things: several days 2. Feeling down, depressed, or hopeless: not at all 3. Trouble falling or staying asleep, or sleeping too much: several days 4. Feeling tired or having little energy: several days 5. Poor appetite or overeating: several days 6. Feeling bad about yourself - or that you are a failure or have let yourself or your family down: not at all 7. Trouble concentrating on things, such as reading the newspaper or watching television: several days 8. Moving or speaking so slowly that other people could have noticed. Or the opposite - being so fidgety or restless that you have been moving around a lot more than usual: not at all 9. Thoughts that you would be better off or of hurting yourself in some way: not at all Total score: 5 Depression Screening Interpretation: Positive (Has bipolar disorder currently being seen by Psychiatry) Depression Screening Follow-up: Existing condition and In treatment Depression Screening Done: Yes 79469 - PHQ-9 Billing: Yes Source: Developed by Drs. Ruben Walls, Michela Jacobs, Eric Flores and colleagues, with an educational dina from [employer]. Thrive Questionnaire Date Thrive assessed: 12/26/24 I am a: Patient What is your living situation today?: I have a steady place to live Within the past 12 months, did the food you bought not last and you didn't have the money to get more?: Never true Within the past 12 months, did you worry whether your food would run out before you got money to buy more?: Never true Do you have trouble paying for medicines?: Yes Do you have trouble getting transportation to medical appointments?: No Do you have trouble paying your heating and electricity bill?: Yes Do you have trouble taking care of your child, family member or friend?: No Do you have trouble with day-to-day activities such as bathing, preparing meals, shopping, managing finances, etc.?: No Are you currently unemployed and looking for a job?: Yes Are you interested in more education?: Yes THRIVE Score: 1 AUDIT C Alcohol Use Questionnaire (AUDIT-C) 1. How often do you have a drink containing alcohol?: Never Total Score: 0 YOSEPH-7 AMB Questionnaire YOSEPH-7 Date YOSEPH - 7 assessed: 12/26/24 Feeling nervous, anxious, or on edge: 1 = Several days Not being able to stop or control worryin = Not at all Worrying too much about different things: 1 = Several days Trouble relaxin = Several days Being so restless that it is hard to sit still: 0 = Not at all Becoming easily annoyed or irritable: 1 = Several days Feeling afraid as if something awful might happen: 1 = Several days Total YOSEPH-7 score (0-4 normal; 5-9 mild; 10-14 moderate; 15-21 severe): 5 Source: Developed by Drs. Ruben Walls, Michela Jacobs, Eric Flores and colleagues, with an educational dina from [employer]. YOSEPH-7 Assessment Billing YOSEPH-7 Assessment Tool: YOSEPH-7 Assessment 89894 Physical exam (Primary Care) Vital Signs: Last Vital Signs Temp 98.2 F 05/02/25 09:58 Pulse 101 H 05/02/25 09:58 Resp 15 05/02/25 09:58 BP 130/80 05/02/25 09:58 Pulse Ox 98 05/02/25 09:58 Oxygen Delivery Method Room Air 05/02/25 09:58 BMI result Body Mass Index 26.2 Tobacco/Smoking Status: Tobacco use Status Tobacco use date assessed 05/02/25 05/02/25 10:05 Patient Tobacco Use Status Current everyday Tobacco 05/02/25 10:05 Tobacco use type Cigarette,Smokeless Tobacco 05/02/25 10:05 e-Cigarette/Vaping Use Currently Using 05/02/25 10:05 PHQ-9: PHQ-9 Score PHQ-9: Total score 5 05/02/25 10:58 Depression Screening Interpretation: Positive (Has bipolar disorder currently being seen by Psychiatry) Depression Screening Follow-up: Existing condition and In treatment Thrive Assessment: Date of Thrive Assessment Date Thrive assessed 12/26/24 05/02/25 10:05 Office Procedures Flu Questionnaire Does the patient have a severe egg allergy?: No Does the patient have severe life threatening allergies?: No Does the patient have a fever or illness today?: No Has the patient ever had Guillain-Rubicon Syndrome?: No Has the patient ever had any past reaction to a flu shot?: No Immunizations Fluarix [id number] (PF) 45 mcg (15 mcg x 3)/0.5 mL IM syringe Performing Provider: Ting Mims MD Performing Location: [facility] Administered by: Sandra Lui CMA on 05/02/25 12:04 Dose Route Admin Location Dispensed Lot Number Expiration Date [facility] [employer] Analyst 0.5 mL IM Right Deltoid 0.5 mL [id number] 02/04/26 [id number] PHRQL VIS Given Date VIS Provided VIS Publication Date 05/02/25 Single Vaccine 24 Eligibility Eligibility Date Funding Source Not [facility] Eligible 05/02/25 Private Coding Level of Care Code Est Pt Prev Care 40-64y(36888) Diagnoses History of abnormal cervical Papanicolaou smear Z87.42 Screening for malignant neoplasm of cervix Z12.4 Bipolar disorder F31.9 Chronic constipation K59.09 Hepatitis C test positive B19.20 Nonscarring hair loss L65.9 Arthralgia of both knees M25.561; M25.562 Advance directive discussed with patient Z71.89 Annual visit for general adult medical examination with abnormal findings Z00.01 Vaginal discharge N89.8 Acute cystitis without hematuria N30.00 Hematuria presence: without hematuria Urinary tract infection type: acute cystitis Additional Codes YOSEPH-7 Assessment Billing - YOSEPH-7 Assessment Tool: YOSEPH-7 Assessment [id number] ([id number]) PHQ-9 - 95796 - PHQ-9 Billing: Yes ([id number]) Assessment & Plan Assessment & Plan (1) History of abnormal cervical Papanicolaou smear: Code(s): Z87.42 - Personal history of other diseases of the female genital tract (2) Screening for malignant neoplasm of cervix: Code(s): Z12.4 - Encounter for screening for malignant neoplasm of cervix (3) Bipolar disorder: Comment: Followed at [facility] Code(s): F31.9 - Bipolar disorder, unspecified Category: Medical (4) Chronic constipation: Code(s): K59.09 - Other constipation Category: Medical (5) Hepatitis C test positive: Code(s): B19.20 - Unspecified viral hepatitis C without hepatic coma Category: Medical (6) Nonscarring hair loss: Code(s): L65.9 - Nonscarring hair loss, unspecified Category: Medical (7) Arthralgia of both knees: Code(s): M25.561 - Pain in right knee; M25.562 - Pain in left knee Category: Medical (8) Advance directive discussed with patient: Code(s): Z71.89 - Other specified counseling (9) Annual visit for general adult medical examination with abnormal findings: Code(s): Z00.01 - Encounter for general adult medical examination with abnormal findings (10) Vaginal discharge: Code(s): N89.8 - Other specified noninflammatory disorders of vagina (11) UTI (urinary tract infection): Code(s): N39.0 - Urinary tract infection, site not specified Category: Medical Qualifiers: Hematuria presence: without hematuria Urinary tract infection type: acute cystitis Qualified Code(s): N30.00 - Acute cystitis without hematuria Orders: Orders CT NG by PCR Vag/Cerv Today N89.8 - Other specified noninflammatory disorders of vagina MM tomosynthesis screening BI Today Z12.31 - Encounter for screening mammogram for malignant neoplasm of breast UA ClnCatch+Micro w/rflx Cult Today N30.00 - Acute cystitis without hematuria AMB Urinalysis Automated Today Z13.9 - Encounter for screening, unspecified Influenza [id number] Immunization Today Z23 - Encounter for immunization Referrals Dermatology Referral L65.9 - Nonscarring hair loss, unspecified [employer] Referral Z12.4 - Encounter for screening for malignant neoplasm of cervix, Z87.42 - Personal history of other diseases of the female genital tract Medications: New nitrofurantoin monohyd/m-cryst 100 mg must administer with a meal/food 100 mg PO Q12H 20 caps 0RF 10 days
== END 2025-05-02 10:59 | disposition home or self-care (01) ==
LOC: HO.HMCC 09:56
PROVIDERS: PCP Internal Medicine; Visit Provider Internal Medicine
DX: Z23 Encounter for immunization (principal)

== ENCOUNTER 2025-05-02 10:54 | Outpatient (REF) | payer OTHER, SELFPAY ==
[2025-05-02 14:14] LABS: Appearance Urine Turbid; Glucose Urine UA Negative (Negative); PH 6.0 (5.0-9.0); Specific Gravity - Urine >= 1.030 (1.005-1.025); UMIC TRIGGER UACC YES
[2025-05-02 14:26] LABS: UACC Culture Trigger YES
== END 2025-05-02 10:55 | disposition home or self-care (01) ==
LOC: HO.LNP 10:54
PROVIDERS: Visit Provider Internal Medicine
DX: N30.00 Acute cystitis without hematuria (principal); N89.8 Other specified noninflammatory disorders of vagina; B19.20 Unspecified viral hepatitis C without hepatic coma; Z86.19 Personal history of other infectious and parasitic diseases
CPT/HCPCS: 81001; 87086; 87088; 87186